=== PATIENT | male | born 1980 | race Caucasian/White ===

== ENCOUNTER 2016-04-13 14:15 | Emergency (ER) | payer BC, OTHER ==
[~2016-04-13] VITALS: Ht 175.3 cm; Wt 75.5 kg
[~2016-04-13 14:15] MED LIST: AZAT50TA30 PO; BNT20 PO; COLE1TAB5 PO; HYOS0.1255 PO; OMEP20CA9 PO; ONDA4TAB9 PO; OXYC-609 PO; PRD10 PO; PRED20TA2 PO
[2016-04-13 14:19] VITALS: TEMP 36.6; Ht 175.3 cm; Wt 75.5 kg
[2016-04-13] MEDS ORDERED: OXYCODONE HCL IR 5 MG TAB (IMMEDIATE RELEASE) PO STA (14:58)
--- NOTE | 2016-04-13 15:25 | DIAGNOSTIC IMAGING REPORT ---
TWO VIEW CHEST CLINICAL HISTORY: Left-sided chest pain. Left upper extremity numbness. FINDINGS: PA and lateral chest radiographs are compared to study dated 01/01/2016. The cardiomediastinal silhouette is unremarkable. Linear atelectasis is present the left lung base. The lungs and pleural spaces are otherwise clear. There is no pneumothorax. The bony thorax appears intact. IMPRESSION: No active disease in the chest. Electronically signed by: Brendan Knott M.D. 04/13/2016 3:24 PM Dictated Date/Time: 04/13/2016 3:24 PM
[2016-04-13 16:54] VITALS: BP 139/93; PULSE 66; O2SAT 97
--- NOTE | 2016-04-13 17:40 | EMERGENCY ROOM VISIT NOTE ---
History First contact with patient: 14:29 Chief Complaint: SHOULDER PAIN Stated Complaint: SHOULDER/CHEST PAIN History of Present Illness The patient is a 35 year old white male who presents to the Emergency Room with complaints of left anterior chest pain that radiates to the left shoulder. Symptoms started last night. They have been present throughout the day. He states he was working on his car over the last several days. He has also been moving and loading lots of boxes. He denies any specific trauma. Pain is diffuse across the pectoral muscle. It is reproducible with palpation. He denies any history of heart disease. No shortness of breath. Left chest wall hurts more with a deep breath. He also notes radiation of symptoms down the left arm to his fingertips. He states that his long, ring, little fingertips are numb. No treatment. No other complaints. No diaphoresis. Review of Systems REVIEW OF SYSTEM: HEENT: No dizziness, visual problems, hearing loss, or tinnitus. There is no difficulty swallowing and no oral lesions are present. LYMPH: No adenopathy. PULMONARY: No cough, shortness of breath, sputum production or hemoptysis. CARDIOVASCULAR: No chest pain, palpitations, shortness of breath or peripheral edema. GASTROINTESTINAL: Positive diarrhea, constipation, nausea, vomiting, and abdominal pain. GENITOURINARY: No dysuria, frequency, urgency or nocturia. NEUROLOGIC: No weakness, muscle tenderness, epilepsy or history of neurological problems. MUSCULOSKELETAL: No history of joint tenderness/swelling. No history of arthritis or arthralgias. SKIN: No rashes or lesions. PSYCHIATRIC: No history of depression or mental illness. ENDOCRINE: No history of diabetes, thyroid disorders, or abnormal hair growth. Past Medical/Surgical History Medical Problems: (1) Abdominal pain (2) Crohns disease (3) Crohns disease (4) Exacerbation of Crohn's disease (5) GERD (gastroesophageal reflux disease) (6) Hematochezia (7) Nausea, vomiting, and diarrhea (8) Right sided abdominal pain Surgical Problems: (1) History of partial colectomy (2) Status post small bowel resection Family History Diabetes mellitus FH: heart disease FHx: cancer Social History Smoking Status: Never Smoker Smokeless Tobacco Use: Yes Alcohol Use: occasionally Drug Use: marijuana Marital Status: single Housing Status: lives with family Occupation Status: unemployed Current/Historical Medications Scheduled Adalimumab (Humira Pen), 40 MG SQ Q2 WEEKS Azathioprine (Azathioprine), 100 MG PO DAILY Colestipol Hcl (Colestipol Hcl), 2 GM PO BID Dicyclomine HCl (Dicyclomine HCl), 20 MG PO TID Omeprazole (Prilosec), 20 MG PO QAM Scheduled PRN Hyoscyamine Sulfate (Levsin), 0.125 MG PO TID PRN for cramps Ondansetron (Ondansetron HCl), 4 MG PO Q6H PRN for Nausea Oxycodone HCl (Oxycodone HCl), 5 MG PO BID PRN for Pain Allergies Coded Allergies: Acetaminophen (Verified Allergy, Intermediate, HIVES, 04/13/16) NSAIDs (Verified Allergy, Unknown, contraindicated hx bleeding ulcers, 04/13) Infliximab (Verified Adverse Reaction, Severe, NAUSEA, EMESIS, FLUSHING, HIVES, HYPERTENSION, PALLOR, 04/13/16) PT RECEIVING 3RD DOSE OF REMICADE (1ST AT [facility]) AND DEVELOPED THE FOLLOWING SYMPTOMS 13 MINUTES INTO MEDICATION: NAUSE, EMESIS, FLUSHING, HIVES ON FACE, BACK, ABDOMEN, CHEST, AND BELOW RIGHT EYE; HYPERTENSION, PALLOR. DENIES ANY DIFFICULTY SWALLOWING OR BREATHING/NO SOB. MEDICATION STOPPED IMMEDIATELY WITH NSS UP AT 125 CC/HR. Physical Exam Vital Signs Date Time Temp Pulse Resp B/P Pulse Ox O2 Delivery O2 Flow Rate FiO2 04/13/16 16:54 66 18 139/93 97 04/13/16 15:46 64 18 131/71 99 Room Air 04/13/16 14:19 36.6 93 18 164/81 100 Room Air Pain Rating (0-10): 0 Physical Exam Gen.: Well-developed, well-nourished, young white male, in no acute distress. Obvious discomfort. Sitting on a bed. Alert and oriented. Skin:Warm and dry with good turgor. No rashes or lesions. No ecchymosis or erythema. The patient is not diaphoretic. No abrasions. Heart: Heart RRR. No MGR. Peripheral pulses are 2+. Lungs: Lungs are clear to auscultation. No crackles rhonchi or wheezing. Good air movement. The patient is able to take a deep breath. Abdomen: Abdomen was inspected, auscultated, and palpated. Bowel sounds present x 4. Soft, nontender to palpation. No hepato- splenomegaly. No masses noted. Musculoskeletal: No obvious asymmetry or deformity to the anterior chest wall. He has focal discomfort with palpation over the pectoral muscle. This does re-create his pain. Pain extends into the tail of the pectoral muscle. No pain with palpation of the posterior rotator cuff musculature, trapezius, deltoid, bicep, tricep. Full range of motion of the digits, wrist, and elbow. Shoulder abduction to 90. This does increase his pain. No pain with palpation of the right pectoral muscle or sternum. Resisted abduction increases his pectoral pain, as well as bench pressing-type activity. Neurologic: Gross sensation is intact across the left arm. He complains of decreased subjective sensation across the tips of the long, ring, and little fingers. He does have intact normal sensation to the proximal end of these digits. Peripheral pulses are 2+. Medical Decision & Procedures ER Provider Diagnostic Interpretation: EKG obtained today shows a normal sinus rhythm without acute ST or T-wave changes. Rate of 61. No change since April 2014 with comparison. Chest x-ray obtained today was read by radiology as unremarkable Medications Administered Medications (Trade) Dose Ordered Sig/Petar Route Start Time Stop Time Status Last Admin Dose Admin Oxycodone HCl (Roxicodone Immediate Rel Tab) 5 mg NOW STAT PO 04/13/16 14:58 04/13/16 14:59 DC 04/13/16 14:58 5 MG OxyIR 5 mg by mouth ED Course Patient was educated regarding today's findings. Conservative care measures were discussed. He was given a tablet of OxyIR 5 mg to help with pain control. He is unable to take NSAIDs due to his Crohn's and unable to take Tylenol due to previous allergic reaction. EKG and chest x-ray were obtained. They are unremarkable. Patient had improvement in his discomfort and was visualized laying comfortably on the bed playing on his phone. He was reassured that I find no evidence for pulmonary or cardiac source. He has likely strained his pectoral muscle. Need to avoid any heavy lifting. Days. 5. Use ice intermittently 3 days, then use moist heat. Follow-up PCP if symptoms persist to discuss medication management versus physical therapy. Medical Decision Possibility of coronary syndrome, pericarditis, pneumonia, rib fracture, intercostal strain, potential strain, contusion, and muscle rupture were considered Impression Primary Impression: Strain of left pectoralis muscle Departure Information Dispostion Home / Self-Care Condition GOOD Forms HOME CARE DOCUMENTATION FORM, IMPORTANT VISIT INFORMATION Patient Instructions My [facility] Additional Instructions Gentle stretching daily Ice to the chest wall intermittently 3 days, then use moist heat Avoid any heavy lifting, more than 5 pounds Follow-up as needed with your PCP
[2016-09-13] MEDS ORDERED: ADAL40KI SQ (09:10)
[2016-09-13] MEDS ORDERED: PRLSR20 PO (15:08)
[2016-09-13] MEDS ORDERED: METH500T37 PO (15:08)
[2016-09-13] MEDS ORDERED: SERT50TA PO (15:08)
[2016-09-13] MEDS ORDERED: DICY10CA12 PO (15:09)
[2016-11-07] MEDS ORDERED: CPR500 PO (15:34)
== END 2016-04-13 16:55 | disposition home or self-care (01) ==
LOC: C.EDB 14:16 → C.EDD 16:55
DX: S29.011A Strain of muscle and tendon of front wall of thorax, initial encounter (principal); X58.XXXA Exposure to other specified factors, initial encounter; K21.9 Gastro-esophageal reflux disease without esophagitis; Z79.899 Other long term (current) drug therapy; K50.90 Crohn's disease, unspecified, without complications

== ENCOUNTER 2016-08-18 14:26 | Emergency (ER) | payer OTHER ==
[~2016-08-18] VITALS: Ht 175.3 cm; Wt 66.7 kg
[~2016-08-18 14:26] MED LIST changes: -PRD10 PO; -PRED20TA2 PO
[2016-08-18 14:30] VITALS: TEMP 36.8; Ht 175.3 cm; Wt 66.7 kg
[2016-08-18] MEDS ORDERED: AMOX875T PO (15:02)
[2016-08-18] MEDS ORDERED: DICL-201 PO (15:08)
[2016-08-18] MEDS ORDERED: ONDANSETRON 4MG OD TAB PO STA (15:19)
[2016-08-18] MEDS ORDERED: KETOROLAC TROMETHAMINE 60 MG/2 ML VIAL IM STA (15:19)
[2016-08-18] MEDS ORDERED: HYDROmorphone INJ 2 MG/ML SYR/VIAL IM STA (15:19)
[2016-08-18] MEDS ORDERED: CYCLOBENZAPRINE HCL 10 MG TAB PO STA (15:19)
[2016-08-18] MEDS ORDERED: OXYC1TAB3 PO (16:06)
[2016-08-18] MEDS ORDERED: CYCL10TA6 PO (16:06)
--- NOTE | 2016-08-18 16:07 | EMERGENCY ROOM VISIT NOTE ---
ED Visit Note First contact with patient: 15:00 CHIEF COMPLAINT: Mid back pain times "a couple weeks" HISTORY OF PRESENT ILLNESS: Patient is a 35-year-old white male who presents to the emergency department for evaluation of thoracic back pain. His symptoms started a couple of weeks ago. He states that he was able to tolerate it initially, but over the last week his symptoms have progressively worsened. He describes pain in his mid back between his shoulder blades that is constant, but worse with movement. He had x-rays performed last week, which showed some mild degenerative disc changes. He has a history of chronic low back pain as well as Crohn's disease, has oxycodone for his chronic pain which she has been taking without relief of his mid back pain. He is using oxycodone 5 mg 1-2 tablets every 4-6 hours. He ran out of his oxycodone this morning. If this is prescribed by his primary care provider, Dr. Smith. He is allergic to acetaminophen, and cannot take NSAIDs due to his Crohn's disease. He tried BenGay, Biofreeze, massage and soaking in the top without relief. He presently rates his pain an 8/10. He denies any anterior chest pain or shortness of breath. Pain is not worse with coughing or deep breathing. No numbness, weakness, or tingling of extremities. He denies any unusual activity or direct trauma to the area prior to the onset of his pain. REVIEW OF SYSTEMS: Review of systems as per HPI. All other systems reviewed were negative. At least 6 systems reviewed. PMH: Electronic medical records are reviewed and summarized as above/below. See Problem List. SOCIAL HISTORY: Patient lives at home with his family. Former smoker. Employed. PHYSICAL EXAM: Vital Signs: Reviewed Nurse's notes. CONSTITUTIONAL: Patient is an uncomfortable appearing 35-year-old white male who was awake and alert and in moderate distress due to his mid back pain. There is significant discomfort with position changes. NECK: No bruits auscultated. Supple without lymphadenopathy. No thyromegaly. No meningeal signs. Full active range of motion without discomfort. CARDIOVASCULAR: Regular rate and rhythm, with normal S1 and S2, no murmur or gallop or rub is heard. No carotid bruits auscultated. No JVD. Peripheral pulses easily palpable. RESPIRATORY: Breath sounds equal and clear to auscultation without wheezes, rales, or rhonchi heard. Full and equal chest expansion without accessory muscle use or retractions. INTEGUMENTARY: No lesions or rash, normal skin turgor. LYMPH: No lymphadenopathy. SPINE: Examination of the patient's back does not demonstrate any ecchymosis, abrasions or outward signs of trauma. No erythema, increased warmth or induration. Patient has midline discomfort to palpation over the midthoracic spine. There is some reproducible paraspinous muscle tenderness, no focal spasm. There is no pain over the cervical spine. He has increased pain with range of motion including rotation and flexion. EXTREMITIES: Leg lengths are symmetrical. Negative logroll bilaterally. Negative bilateral straight leg raise testing. Upper and lower extremity DTRs are equal and symmetrical bilaterally. Distal pulses are easily palpable. Sensation light touch is intact over the lower extremities bilaterally. EMERGENCY DEPARTMENT COURSE: The patient was seen and evaluated as above. He presents to the emergency department for evaluation of mid back pain. He had radiographs as an outpatient, which were negative. The pain appears more muscular/ligamentous injury to her. There is no pleuritic component, no chest pain, pulmonary or cardiac etiology was felt to be unlikely. He does not have any neurologic neurologic deficits to suspect acute cord compression or cauda equina syndrome. I do not suspect epidural abscess or osteomyelitis. The patient was medicated with IM Toradol and Dilaudid with oral Zofran. He was given a small prescription for oxycodone and a prescription for Flexeril until he can get a refill from his primary care provider. He was encouraged to recheck with Dr. Smith for further care and evaluation of his symptoms. He was discharged to home with his driving. He rated his pain 2/10 at discharge. Patient was reviewed in the [facility] Prescription Drug Monitoring Program, which showed his regular oxycodone prescriptions from his PCP. No other worrisome red flags are noted. Medication reconciliation: I attest that I have personally reviewed the patient' s current medication list. Blood pressure screening: Patient was found to have a slightly elevated blood pressure due to circumstances. I do not believe that the patient requires hypertension monitoring. Problem List Medical Problems: (1) Abdominal pain Status: Resolved (2) Crohns disease Status: Chronic (3) Crohns disease Status: Chronic (4) Exacerbation of Crohn's disease Status: Resolved (5) Exacerbation of Crohn's disease Status: Resolved (6) GERD (gastroesophageal reflux disease) Status: Chronic (7) Hematochezia Status: Resolved (8) Lumbago Status: Chronic (9) Nausea, vomiting, and diarrhea Status: Resolved (10) Right sided abdominal pain Status: Resolved (11) Strain of left pectoralis muscle Status: Resolved (12) Strain of left pectoralis muscle Status: Resolved Surgical Problems: (1) History of partial colectomy Permanent Comment: LAPAROSCOPIC PARTIAL COLECTOMY REMOVAL OF TERMINAL ILEUM performed by Shweta Causey MD at [facility] Status: Resolved (2) Status post small bowel resection Status: Resolved Current/Historical Medications Scheduled Adalimumab (Humira Pen), 40 MG SQ Q2 WEEKS Amoxicillin & Pot Clavulanate (Augmentin 875-125 mg), 1 TAB PO BID Diclofenac (Voltaren), 75 MG PO DAILY Omeprazole (Prilosec), 20 MG PO DAILY Sertraline (Zoloft), 50 MG PO DAILY Scheduled PRN Cyclobenzaprine Hcl (Flexeril), 10 MG PO TID PRN for Muscle Spasms Dicyclomine Hcl (Dicyclomine Hcl), 1 CAP PO TID PRN for Pain Methocarbamol (Robaxin), 500 MG PO TID PRN for Muscle Spasms Oxycodone HCl (Oxycodone HCl), 5 MG PO Q8 PRN for Pain Oxycodone Immediate Rel Tab (Roxicodone Ir), 1-2 TAB PO Q4H PRN for Severe Pain Allergies Coded Allergies: Acetaminophen (Verified Allergy, Intermediate, HIVES, 04/13/16) NSAIDs (Verified Allergy, Unknown, contraindicated hx bleeding ulcers, 04/13) Infliximab (Verified Adverse Reaction, Severe, NAUSEA, EMESIS, FLUSHING, HIVES, HYPERTENSION, PALLOR, 04/13/16) PT RECEIVING 3RD DOSE OF REMICADE (1ST AT [facility]) AND DEVELOPED THE FOLLOWING SYMPTOMS 13 MINUTES INTO MEDICATION: NAUSE, EMESIS, FLUSHING, HIVES ON FACE, BACK, ABDOMEN, CHEST, AND BELOW RIGHT EYE; HYPERTENSION, PALLOR. DENIES ANY DIFFICULTY SWALLOWING OR BREATHING/NO SOB. MEDICATION STOPPED IMMEDIATELY WITH NSS UP AT 125 CC/HR. Vital Signs Date Time Temp Pulse Resp B/P (MAP) Pulse Ox O2 Delivery O2 Flow Rate FiO2 08/18/16 16:30 62 18 128/81 98 Room Air 08/18/16 14:30 36.8 79 17 147/95 97 Room Air Medications Administered Medications (Trade) Dose Ordered Sig/Petar Route Start Time Stop Time Status Last Admin Dose Admin Hydromorphone HCl (Dilaudid Inj) 2 mg NOW STAT IM 08/18/16 15:19 08/18/16 15:21 DC 08/18/16 15:41 2 MG Ketorolac Tromethamine (Toradol Inj) 60 mg NOW STAT IM 08/18/16 15:19 08/18/16 15:21 DC 08/18/16 15:42 60 MG Ondansetron HCl (Zofran Odt) 4 mg NOW STAT PO 08/18/16 15:19 08/18/16 15:21 DC 08/18/16 15:40 4 MG Cyclobenzaprine HCl (Flexeril Tab) 10 mg NOW STAT PO 08/18/16 15:19 08/18/16 15:21 DC 08/18/16 15:41 10 MG Departure Information Impression Primary Impression: Thoracic back pain Prescriptions Cyclobenzaprine Hcl (FLEXERIL) 10 Mg Tab 10 MG PO TID Y for Muscle Spasms, #30 TAB Prov: Lula David PA 08/18/16 Oxycodone Immediate Rel Tab (ROXICODONE IR) 5 Mg Tab 1-2 TAB PO Q4H Y for Severe Pain, #10 TAB For Initial Treatment Prov: Lula David PA 08/18/16 Referrals Kevin Smith M.D. (PCP) Patient Instructions My [facility] Additional Instructions DO NOT drive, drink alcohol, operate machinery, or perform dangerous activities today. You were given medications in the ER that can affect your ability to safely function or operate a vehicle. Oxycodone (OxyIR) 5mg: Take 1-2 pills every four hours for breakthrough pain. Avoid alcohol, operating machinery or dangerous equipment, working on ladders or roofs, DRIVING, or situations where being under the influence may be dangerous. It is recommended to use an [id number] stool softener such as Colace, 100mg twice daily while taking this medication to avoid constipation. Cyclobenzaprine (Flexeril) 10 mg: Take 1 pills 3 times daily as needed for muscle spasms.. Avoid alcohol, operating machinery or dangerous equipment, working on ladders or roofs, DRIVING, or situations where being under the influence may be dangerous. Rest and avoid heavy lifting until your symptoms resolve and then gradually return to full activity. A good rule of thumb is if it hurts your back to perform a certain activity, then it should be avoided until you are healthy again. A heating pad, warm compresses, or a hot shower may help with tight muscles and can be done several times a day as needed. Continue current medications. Return to the ER immediately for any numbness, tingling, severe pain, loss of control of your bowels or bladder, inability to walk, or as needed. Follow up with your primary care physician on Friday for a recheck of your current condition. Problem Qualifiers Primary Impression: Thoracic back pain Chronicity: unspecified Back pain laterality: midline Qualified Codes: M54.6 - Pain in thoracic spine
[2016-08-18 16:30] VITALS: BP 128/81; PULSE 62; O2SAT 98
[2016-09-13] MEDS ORDERED: ADAL40KI SQ (09:10)
[2016-09-13] MEDS ORDERED: METH500T37 PO (15:08)
[2016-09-13] MEDS ORDERED: SERT50TA PO (15:08)
[2016-09-13] MEDS ORDERED: PRLSR20 PO (15:08)
[2016-09-13] MEDS ORDERED: DICY10CA12 PO (15:09)
[2016-11-07] MEDS ORDERED: CPR500 PO (15:34)
== END 2016-08-18 16:34 | disposition home or self-care (01) ==
LOC: C.EDB 14:27 → C.EDD 16:34
DX: M54.6 Pain in thoracic spine (principal); Z87.891 Personal history of nicotine dependence; K50.90 Crohn's disease, unspecified, without complications; K21.9 Gastro-esophageal reflux disease without esophagitis

== ENCOUNTER 2016-09-13 16:38 | Emergency (ER) | payer OTHER ==
[~2016-09-13] VITALS: Ht 170.2 cm; Wt 64.8 kg
[~2016-09-13 16:38] MED LIST changes: +ADAL40KI SQ; +AMOX875T PO; -AZAT50TA30 PO; -BNT20 PO; -COLE1TAB5 PO; +DICL-201 PO; +DICY10CA12 PO; -HYOS0.1255 PO; +METH500T37 PO; -OMEP20CA9 PO; -ONDA4TAB9 PO; +OXYC1TAB3 PO; +PRLSR20 PO; +SERT50TA PO
[2016-09-13 16:44] VITALS: BP 158/106; TEMP 36.8; Ht 170.2 cm; Wt 64.8 kg
[2016-09-13] MEDS ORDERED: OXYC1TAB3 PO (17:30)
--- NOTE | 2016-09-13 18:15 | DIAGNOSTIC IMAGING REPORT ---
LEFT KNEE 3 VIEWS CLINICAL HISTORY: Left knee pain status post trauma COMPARISON: None. DISCUSSION: No fractures or dislocations are visualized. No joint effusion is visualized. IMPRESSION: No fractures identified. Electronically signed by: Adam Yu M.D. 09/13/2016 6:14 PM Dictated Date/Time: 09/13/2016 6:14 PM
--- NOTE | 2016-09-13 18:21 | EMERGENCY ROOM VISIT NOTE ---
ED Visit Note First contact with patient: 17:07 CHIEF COMPLAINT: Left knee injury this morning HISTORY OF PRESENT ILLNESS: Patient is a 36-year-old white male who presents emergency department for evaluation of left knee pain. He injured the ED this morning when he was loading his small boat into the back of his pickup truck. He states that the tailgate was not latched, and when the tailgate opened, the boat fell, striking him on the top of the left knee. He had 2 oxycodone tablets left over from the prescription from his primary care provider which he took. He applied ice to the knee. He reports that he has had problems with the knee and has seen his PCP, Dr. Smith. He is scheduled for an MRI on . He is on oxycodone chronically for back pain. This had been prescribed by Dr. Smith but the patient reports that it is no longer efficacious and Dr. Smith is sending him to pain management. He is scheduled to see pain management on the . He presently rates his knee pain a 10/20. REVIEW OF SYSTEMS: Review of systems as per HPI. All other systems reviewed were negative. At least 6 systems reviewed. PMH: Electronic medical records are reviewed and summarized as above/below. See Problem List. SOCIAL HISTORY: Patient lives at home with his family. Smoker. PHYSICAL EXAM: Vital Signs: Reviewed Nurse's notes. MENTAL STATUS: Alert, oriented, and cooperative. KNEE: Examination of the left knee does not demonstrate any significant soft tissue swelling. No knee joint effusion noted. There is some bruising superomedially, skin is otherwise intact. The knee is exquisitely tender to palpation, out of proportion to physical exam findings. He can contract the quad and perform a slight straight leg raise. He can be flexed to roughly 90 before he has pain. No gross ligament instability is detected. Exam is difficult due to patient cooperation. EMERGENCY DEPARTMENT COURSE: The patient was seen and evaluated as above. His old records were reviewed. He was just seen here by me about a month ago for thoracic back pain. X-rays of the left knee were obtained and negative for acute fracture or bony abnormality. He was wrapped with an Paulino wrap and issued crutches. Differential diagnoses entertained included patellar fracture, patellar dislocation/subluxation, quadriceps tendon injury, knee fracture, meniscal tear, ligamentous injury, among others. The patient has had some chronic problems with the left knee for several years and is scheduled for an MRI in a couple of weeks. He is prescribed narcotics chronically from his PCP, patient was reviewed in the [facility] Prescription Drug Monitoring Program, which show that he gets a 20 day supply of oxycodone from his PCP monthly. His last prescriptions for a 20 day supply was filled on . Patient reportedly used up the last of his medications today, which is only day 18. Given that he receives regular prescriptions from his PCP, I did not feel comfortable prescribing him additional narcotics, particularly given lack of any substantial findings on the x-ray. Unfortunately patient has an allergy to acetaminophen and cannot take NSAIDs due to stomach ulcers. He was given an oxycodone home pack. He was advised to follow-up with his primary care provider for recheck, and for the MRI as scheduled. Medication reconciliation: I attest that I have personally reviewed the patient' s current medication list. Blood pressure screening: Patient was found to have a slightly elevated blood pressure due to circumstances. I do not believe that the patient requires hypertension monitoring. Patient was reviewed in the [facility] Prescription Drug Monitoring Program. He receives regular 20 day supply of oxycodone from Dr. Smith, his last prescription was from 08/26. LEFT KNEE 3 VIEWS CLINICAL HISTORY: Left knee pain status post trauma COMPARISON: None. DISCUSSION: No fractures or dislocations are visualized. No joint effusion is visualized. IMPRESSION: No fractures identified. Problem List Medical Problems: (1) Abdominal pain Status: Resolved (2) Crohns disease Status: Chronic (3) Crohns disease Status: Chronic (4) Exacerbation of Crohn's disease Status: Resolved (5) Exacerbation of Crohn's disease Status: Resolved (6) GERD (gastroesophageal reflux disease) Status: Chronic (7) Hematochezia Status: Resolved (8) Lumbago Status: Chronic (9) Nausea, vomiting, and diarrhea Status: Resolved (10) Right sided abdominal pain Status: Resolved (11) Strain of left pectoralis muscle Status: Resolved (12) Strain of left pectoralis muscle Status: Resolved (13) Thoracic back pain Status: Resolved Surgical Problems: (1) History of partial colectomy Permanent Comment: LAPAROSCOPIC PARTIAL COLECTOMY REMOVAL OF TERMINAL ILEUM performed by Shweta Causey MD at OR [facility] Status: Resolved (2) Status post small bowel resection Status: Resolved Current/Historical Medications Scheduled Adalimumab (Humira Pen), 40 MG SQ Q2 WEEKS Omeprazole (Prilosec), 20 MG PO DAILY Sertraline (Zoloft), 50 MG PO DAILY Scheduled PRN Dicyclomine Hcl (Dicyclomine Hcl), 1 CAP PO TID PRN for Pain Methocarbamol (Robaxin), 500 MG PO TID PRN for Muscle Spasms Oxycodone Ir (Roxicodone Ir), 1-2 TAB PO Q4H PRN for Severe Pain Allergies Coded Allergies: Acetaminophen (Verified Allergy, Intermediate, HIVES, 04/13/16) NSAIDs (Verified Allergy, Unknown, contraindicated hx bleeding ulcers, 04/13) Infliximab (Verified Adverse Reaction, Severe, NAUSEA, EMESIS, FLUSHING, HIVES, HYPERTENSION, PALLOR, 04/13/16) PT RECEIVING 3RD DOSE OF REMICADE (1ST AT [facility]) AND DEVELOPED THE FOLLOWING SYMPTOMS 13 MINUTES INTO MEDICATION: NAUSE, EMESIS, FLUSHING, HIVES ON FACE, BACK, ABDOMEN, CHEST, AND BELOW RIGHT EYE; HYPERTENSION, PALLOR. DENIES ANY DIFFICULTY SWALLOWING OR BREATHING/NO SOB. MEDICATION STOPPED IMMEDIATELY WITH NSS UP AT 125 CC/HR. Vital Signs Date Time Temp Pulse Resp B/P (MAP) Pulse Ox O2 Delivery O2 Flow Rate FiO2 09/13/16 18:51 80 18 99 Room Air 09/13/16 16:44 36.8 76 18 158/106 99 Room Air Medications Administered Medications (Trade) Dose Ordered Sig/Petar Route Start Time Stop Time Status Last Admin Dose Admin Oxycodone HCl (Roxicodone Immediate Rel 5MG Home Pack) 1 homepack UD ONCE PO 09/13/16 18:30 09/13/16 18:31 DC 09/13/16 18:44 1 HOMEPACK Departure Information Impression Primary Impression: Contusion of left knee Referrals Kevin Smith M.D. (PCP) Patient Instructions My [facility] Additional Instructions Oxycodone (OxyIR) 5mg: Take 1-2 pills every four hours for breakthrough pain. Avoid alcohol, operating machinery or dangerous equipment, working on ladders or roofs, DRIVING, or situations where being under the influence may be dangerous. It is recommended to use an [id number] stool softener such as Colace, 100mg twice daily while taking this medication to avoid constipation. Ice compresses for 20 minutes at a time four times daily for 2-3 days. Use the crutches as instructed. Rest and elevate your injury. Continue current medications. Return to the ER immediately for any numbness, tingling, severe pain, extreme swelling in the extremity or as needed. Follow-up with your primary care physician for further care and management, and for your MRI as scheduled. Problem Qualifiers Primary Impression: Contusion of left knee Encounter type: initial encounter Qualified Codes: S80.02XA - Contusion of left knee, initial encounter
[2016-09-13] MEDS ORDERED: OXYCODONE IR HOME PACK PO ONE (18:30)
[2016-09-13 18:51] VITALS: PULSE 80; O2SAT 99
[2016-11-07] MEDS ORDERED: CPR500 PO (15:34)
== END 2016-09-13 18:51 | disposition home or self-care (01) ==
LOC: C.EDB 16:39 → C.EDD 18:51
DX: S80.02XA Contusion of left knee, initial encounter (principal); W22.8XXA Striking against or struck by other objects, initial encounter; G89.29 Other chronic pain; K21.9 Gastro-esophageal reflux disease without esophagitis; K50.90 Crohn's disease, unspecified, without complications; F17.200 Nicotine dependence, unspecified, uncomplicated; Z87.828 Personal history of other (healed) physical injury and trauma; Z90.49 Acquired absence of other specified parts of digestive tract; Z79.899 Other long term (current) drug therapy; Z88.6 Allergy status to analgesic agent; Z88.8 Allergy status to other drugs, medicaments and biological substances

== ENCOUNTER → 2016-10-31 | Outpatient (CLI) | payer OTHER ==
[~2016-10-31] MED LIST changes: -AMOX875T PO; +CPR500 PO; +DICY20TA35 PO; +OXYC-164 PO; -OXYC-609 PO; +SERT25TA PO
--- NOTE | 2016-10-31 15:32 | DIAGNOSTIC IMAGING REPORT ---
WHOLE-BODY BONE SCAN WITH SPECT IMAGING OF THE LUMBAR SPINE AND PELVIS CLINICAL HISTORY: Lumbar spine and SI joint chronic pain. Sacroiliitis. COMPARISON STUDY: CT scan the abdomen pelvis dated 01/19/2016 FINDINGS: The patient was injected with 24.4 mCi of technetium 99m MDP. Three-hour delayed whole body images were acquired. These are supplemented with SPECT imaging of the lumbar spine and pelvis. Skeletal uptake is felt to be symmetric and normal on both plain arm and SPECT imaging. IMPRESSION: Normal study Electronically signed by: Adam Yu M.D. 10/31/2016 3:31 PM Dictated Date/Time: 10/31/2016 3:28 PM
== END | disposition home or self-care (01) ==
LOC: C.NUCL 11:04
PROVIDERS: ATTEND Anesthesiology Pain Medicine
DX: G89.4 Chronic pain syndrome (principal); M46.1 Sacroiliitis, not elsewhere classified; M47.26 Other spondylosis with radiculopathy, lumbar region

== ENCOUNTER 2016-11-05 13:31 | Inpatient (IN) | payer OTHER ==
[~2016-11-05] VITALS: Ht 175.3 cm; Wt 66.6 kg
[~2016-11-05 13:31] MED LIST changes: -CPR500 PO; -DICL-201 PO; -DICY20TA35 PO; -OXYC-164 PO; -SERT25TA PO
[2016-11-05] MEDS ORDERED: SERT25TA PO (13:55)
[2016-11-05] MEDS ORDERED: OXYC-164 PO (13:55)
[2016-11-05] MEDS ORDERED: DICL-201 PO (13:55)
[2016-11-05] MEDS ORDERED: DICY20TA35 PO (13:55)
[2016-11-05] MEDS ORDERED: ONDANSETRON INJ 2 MG/ML 2 ML VIAL IV STA (14:17)
[2016-11-05] MEDS ORDERED: MoRPHine SULFATE 4 MG/ML 1 ML CARP\\VIAL IV STA (14:18)
[2016-11-05] MEDS ORDERED: SODIUM CHLORIDE 0.9% 1000ML 1,000 ML IV ONE (14:30)
[2016-11-05] MEDS ORDERED: SODIUM CHLORIDE 0.9% 1000ML 1,000 ML IV SCH ×2 (14:30)
--- NOTE | 2016-11-05 14:32 | EMERGENCY ROOM VISIT NOTE ---
History First contact with patient: 13:58 Chief Complaint: ABDOMINAL PAIN Stated Complaint: CROHN'S FLARE-UP History of Present Illness The patient is a 36 year old male with a past medical history of Crohn's who presents to the Emergency Room with complaints of a 1 week history of diarrhea. The patient began to have loose stool 1 week ago that was progressively worsening so the patient changed his diet to a liquid diet. His bowel movement then became more solid but began to have blood and then returned to watery diarrhea over the weekend. Yesterday the patient began to have some crampy pain before bed but was able to fall asleep. He woke up this morning with repeated cramping that intermittently lasts 2 minutes and is a 7-9/10. The patient states that he has experienced worse flairs before but the cramping is unbearable. He was unable to walk or stand at work due to the excruciating nature of his cramping. He is compliant with his home medications and took his Humira last week. He denies any vomiting but has had less of an appetite due to nausea associated with the cramping. Patient denies any fevers or chills but has been very sweaty today with the cramping. Review of Systems See HPI for pertinent positives and negatives. A total of ten systems were reviewed and were otherwise negative. Past Medical/Surgical History Medical Problems: (1) Abdominal pain (2) Crohns disease (3) Crohns disease (4) Exacerbation of Crohn's disease (5) Exacerbation of Crohn's disease (6) GERD (gastroesophageal reflux disease) (7) Hematochezia (8) Lumbago (9) Nausea, vomiting, and diarrhea (10) Right sided abdominal pain (11) Strain of left pectoralis muscle (12) Strain of left pectoralis muscle (13) Thoracic back pain Surgical Problems: (1) History of partial colectomy (2) Status post small bowel resection Family History Diabetes mellitus FH: heart disease FHx: cancer Social History Smoking Status: Light Tobacco Smoker Alcohol Use: occasionally Drug Use: marijuana Marital Status: single Housing Status: lives with family Occupation Status: unemployed Current/Historical Medications Scheduled Adalimumab (Humira Pen), 40 MG SQ Q2 WEEKS Diclofenac (Voltaren), 75 MG PO BID Dicyclomine Hcl (Bentyl), 20 MG PO DAILY Omeprazole (Prilosec), 20 MG PO BID Sertraline (Zoloft), 25 MG PO DAILY Scheduled PRN Methocarbamol (Robaxin), 500 MG PO TID PRN for Muscle Spasms Oxycodone Hcl (Oxycodone Hcl), 1 TAB PO QID PRN for Pain Physical Exam Vital Signs Date Time Temp Pulse Resp B/P (MAP) Pulse Ox O2 Delivery O2 Flow Rate FiO2 11/05/16 14:40 66 17 154/85 98 Room Air 11/05/16 13:40 36.9 69 17 159/101 98 Room Air Physical Exam GENERAL: Awake, alert, in mild distress HENT: Normocephalic, atraumatic. Oropharynx unremarkable. EYES: Normal conjunctiva. Sclera non-icteric. NECK: Supple. No nuchal rigidity. RESPIRATORY: Clear to auscultation. CARDIAC: Regular rate, normal rhythm. Extremities warm and well perfused. Pulses equal. ABDOMEN: Soft, non-distended. Tenderness to palpation of the abdomen worse at the RLQ. No rebound or guarding. No masses. RECTAL: Deferred. MUSCULOSKELETAL: Chest examination reveals no tenderness. The back is symmetrical on inspection without obvious abnormality. LOWER EXTREMITIES: Calves are equal size bilaterally and non-tender. No edema. No discoloration. NEURO: Normal sensorium. No sensory or motor deficits noted. SKIN: No rash or jaundice noted. Medical Decision & Procedures Laboratory Results 11/05/16 13:56 Red Blood Count 5.18, Mean Corpuscular Volume 84.9, Mean Corpuscular Hemoglobin 27.2, Mean Corpuscular Hemoglobin Concent 32.0, Neutrophils (%) (Auto) 60.8, Lymphocytes (%) (Auto) 30.0, Monocytes (%) (Auto) 6.6, Eosinophils (%) (Auto) 1.8, Basophils (%) (Auto) 0.4, Neutrophils # (Auto) 6.40, Lymphocytes # (Auto) 3.16, Monocytes # (Auto) 0.70, Eosinophils # (Auto) 0.19, Basophils # (Auto) 0.04 11/05/16 13:56 Test 11/05/16 13:56 White Blood Count 10.53 K/uL (4.8-10.8) Red Blood Count 5.18 M/uL (4.7-6.1) Hemoglobin 14.1 g/dL (14.0-18.0) Hematocrit 44.0 % (42-52) Mean Corpuscular Volume 84.9 fL (80-100) Mean Corpuscular Hemoglobin 27.2 pg (25-34) Mean Corpuscular Hemoglobin Concent 32.0 g/dl (32-36) Platelet Count 239 K/uL (130-400) Neutrophils (%) (Auto) 60.8 % Lymphocytes (%) (Auto) 30.0 % Monocytes (%) (Auto) 6.6 % Eosinophils (%) (Auto) 1.8 % Basophils (%) (Auto) 0.4 % Neutrophils # (Auto) 6.40 K/uL (1.4-6.5) Lymphocytes # (Auto) 3.16 K/uL (1.2-3.4) Monocytes # (Auto) 0.70 K/uL (0.11-0.59) Eosinophils # (Auto) 0.19 K/uL (0-0.5) Basophils # (Auto) 0.04 K/uL (0-0.2) RDW Standard Deviation 50.9 fL (36.4-46.3) RDW Coefficient of Variation 16.4 % (11.5-14.5) Immature Granulocyte % (Auto) 0.4 % Immature Granulocyte # (Auto) 0.04 K/uL (0.00-0.02) Anion Gap 7.0 mmol/L (3-11) Est Creatinine Clear Calc Drug Dose 88.3 ml/min Estimated GFR () 100.3 Estimated GFR (Non- 86.5 BUN/Creatinine Ratio 13.2 (10-20) Calcium Level 9.1 mg/dl (8.5-10.1) Total Bilirubin 0.4 mg/dl (0.2-1) Direct Bilirubin < 0.1 mg/dl (0-0.2) Aspartate Amino Transf (AST/SGOT) 24 U/L (15-37) Alanine Aminotransferase (ALT/SGPT) 33 U/L (12-78) Alkaline Phosphatase 88 U/L (45-117) Total Protein 8.4 gm/dl (6.4-8.2) Albumin 4.2 gm/dl (3.4-5.0) Lipase 188 U/L (73-393) Medications Administered Medications (Trade) Dose Ordered Sig/Petar Route Start Time Stop Time Status Last Admin Dose Admin Ondansetron HCl (Zofran Inj) 4 mg NOW STAT IV 11/05/16 14:17 11/05/16 14:18 DC 11/05/16 14:39 4 MG Morphine Sulfate (MoRPHine SULFATE INJ) 4 mg NOW STAT IV 11/05/16 14:18 11/05/16 14:20 DC 11/05/16 14:40 4 MG Sodium Chloride 1,000 ml @ 999 mls/hr Q1H1M ONCE IV 11/05/16 14:30 11/05/16 15:51 DC 11/05/16 14:40 999 MLS/HR Sodium Chloride 1,000 ml @ 125 mls/hr Q8H IV 11/05/16 14:30 12/05/16 14:29 11/05/16 14:40 125 MLS/HR Hydromorphone HCl (Dilaudid Inj) 0.5 mg NOW STAT IV 11/05/16 15:12 11/05/16 15:51 DC 11/05/16 15:32 0.5 MG ED Course - Patient evaluated in room B5 with complaints of campy abdominal pain, diarrhea , and blood in stool - Abdominal tenderness to palpation on exam 1420: Orders Place - Labs: CBC, BMP, LFT, Lipase - Meds: Morphine IV 4mg, Zofran IV 4mg, NSS 1L Bolus + 125ml/hr maintenance - Imaging: None at this time 1520: Patient re-evaluated - Continued abdominal pain, now an 09/19 - Dilaudid 0.5mg ordered Medical Decision Patient is a 36 year old male with a history of Crohns disease that presents with a 1 week history of diarrhea Etiologies such as Crohn's flare, colonic abscess, appendicitis, diverticulitis , obstruction, inflammatory bowel disease, renal colic, PUD, biliary pathology , pancreatitis, mesenteric ischemia, infections, genitourinary, UTI, perforated viscus, as well as others were entertained. - Patient continued to have abdominal pain despite 4mg Morphine IV and 0.5mg Dilaudid IV - Discussed patient with [facility] --> Recommended CT abd/pelvis, Stool Culture, Clostridium Difficile toxin testing - Based on lack of improvement with pain medication will admit patient, discussed with [facility] hospitalist who is agreeable Impression Primary Impression: Acute gastroenteritis Additional Impression: Crohn's disease Departure Information Dispostion Admitted as an inpatient Condition FAIR Referrals Kevin Smith M.D. (PCP) Patient Instructions My [facility] Resident Tracking Resident Involvement: Resident Care Provided Care Provided: Adult ED Problem Qualifiers Additional Impression: Crohn's disease Gastrointestinal tract location: unspecified location Digestive disease complication type: unspecified complication Qualified Codes: K50.919 - Crohn' s disease, unspecified, with unspecified complications
[2016-11-05] MEDS: SODIUM CHLORIDE 0.9% 1000ML 1,000 ML IV SCH ×3 (14:40→19:15)
[2016-11-05 15:03] LABS: BASO % 0.4 %; BASO ABS # 0.04 K/uL (0-0.2); COMPLETE YES; EOS % 1.8 %; IG% 0.4 %; LYMPH ABS # 3.16 K/uL (1.2-3.4); MEAN CELL VOLUME 84.9 fL (80-100); MEAN CORPUSCULAR HEMOGLOBIN 27.2 pg (25-34); MONO % 6.6 %; NEUT % 60.8 %; PLATELET COUNT 239 K/uL (130-400); RED BLOOD COUNT 5.18 M/uL (4.7-6.1); WHITE BLOOD COUNT 10.53 K/uL (4.8-10.8)
[2016-11-05] MEDS ORDERED: HYDROmorphone INJ 0.5 MG/0.5 ML SYR IV STA ×2 (15:12→17:23)
[2016-11-05 15:17] LABS: ALT/SGPT 33 U/L (12-78); AST/SGOT 24 U/L (15-37); BLOOD UREA NITROGEN 15 mg/dl (7-18); BUN/CREATININE RATIO 13.2 (10-20); CALCIUM 9.1 mg/dl (8.5-10.1); CARBON DIOXIDE 26 mmol/L (21-32); CHLORIDE 109 mmol/L (98-107); GLUCOSE 85 mg/dl (70-99); POTASSIUM 4.3 mmol/L (3.5-5.1); SODIUM 142 mmol/L (136-145)
[2016-11-05 15:20] LABS: ALKALINE PHOSPHATASE 88 U/L (45-117)
[2016-11-05 15:57] VITALS: O2SAT 97
[2016-11-05 16:31] VITALS: Ht 175.3 cm; Wt 66.6 kg
[2016-11-05] MEDS ORDERED: METHOCARBAMOL 500 MG TAB PO PRN (17:15)
[2016-11-05] MEDS ORDERED: ONDANSETRON INJ 2 MG/ML 2 ML VIAL IV PRN (17:15)
[2016-11-05 17:32] VITALS: BP 174/105; PULSE 54; TEMP 36.5; O2SAT 97
--- NOTE | 2016-11-05 18:11 | History and Physical ---
History & Physical Date & Time of Service: Nov 05, 2016 at 17:09 Chief Complaint: Crohn's Flare-Up Primary Care Physician: Kevin Smith M.D. History of Present Illness Source: patient, clinic records, hospital records This is a 36 y/o male with PMH of Crohn's disease s/p ileocecectomy on Humira, chronic pain on narcotics, who presents to the ED for bloody diarrhea and abdominal cramping. Pt follows with Dr. Metzger for GI. Diarrhea started 8 days ago with blood mixed in the stool. He reports associated increased abdominal cramping for past 1 week. After a few days stool became formed with blood. Was feeling better over the weekend. Took Humira on Friday. Then last night cramps became more severe, rated 6-9/10. Today at work he developed cold sweats and 3-4 episodes of diarrhea with blood on the toilet paper, nausea with dry heaves. Nausea resolved with Zofran. He currently rates pain 5-7/10 after being treated with morphine 4 mg IV and Dilaudid 0.5 mg IV. He reports decreased PO intake over course of this illness. He reports weight loss of 15 lb over past 6 weeks. Denies fever, chest pain, SOB, cough, dysuria, frequency. Pt denies recent antibiotics. He is not currently taking steroids. He was last hospitalized in August 2016 for Crohns flare treated with steroids. Past Medical/Surgical History Medical Problems: Chronic pain Status: Chronic Crohn disease Status: Chronic GERD (gastroesophageal reflux disease) Status: Chronic Sacroiliitis Status: Chronic Surgical Problems: History of partial colectomy Permanent Comment: LAPAROSCOPIC PARTIAL COLECTOMY REMOVAL OF TERMINAL ILEUM performed by Shweta Causey MD at [facility] Status: Resolved Family History Diabetes mellitus FH: heart disease FHx: cancer Social History Smoking Status: Current Some Day Smoker (some day smoker, up to 1/2 pack in a day) Alcohol Use: occasionally Drug Use: marijuana Marital Status: single Occupational Status: employed [employer]-D[employer] Resistant Organ[employer] History of MDRO: No Allergies Coded Allergies: Acetaminophen (Verified Allergy, Intermediate, HIVES, 11/07/16) NSAIDs (Verified Allergy, Unknown, contraindicated hx bleeding ulcers, ) Infliximab (Verified Adverse Reaction, Severe, NAUSEA, EMESIS, FLUSHING, HIVES, HYPERTENSION, PALLOR, 11/07/16) PT RECEIVING 3RD DOSE OF REMICADE (1ST AT [facility]) AND DEVELOPED THE FOLLOWING SYMPTOMS 13 MINUTES INTO MEDICATION: NAUSE, EMESIS, FLUSHING, HIVES ON FACE, BACK, ABDOMEN, CHEST, AND BELOW RIGHT EYE; HYPERTENSION, PALLOR. DENIES ANY DIFFICULTY SWALLOWING OR BREATHING/NO SOB. MEDICATION STOPPED IMMEDIATELY WITH NSS UP AT 125 CC/HR. Home Medications Scheduled Adalimumab (Humira Pen), 40 MG SQ Q2 WEEKS Ciprofloxacin (Ciprofloxacin HCl), 500 MG PO BID Diclofenac (Voltaren), 75 MG PO BID Omeprazole (Prilosec), 20 MG PO BID Sertraline (Zoloft), 25 MG PO DAILY Scheduled PRN Dicyclomine Hcl (Bentyl), 20 MG PO DAILY PRN for abdominal cramping Methocarbamol (Robaxin), 500 MG PO TID PRN for Muscle Spasms Oxycodone Hcl (Oxycodone Hcl), 1 TAB PO Q4H PRN for Pain Review of Systems Constitutional- no fever; no weight loss Eyes- no acute visual changes ENT- no sinus drainage; no pharyngitis Pulmonary- no cough, no wheezing, no shortness of breath Cardiac- no chest pain, no palpitations, no orthopnea, no dependent edema GI- (+) as noted above - no dysuria, no hematuria Musculoskeletal- no arthralgias, no myalgias Derm- no rashes, no new skin lesions, no changing skin lesions Hematologic- no unusual bruising, no unusual bleeding Lymphatics- no adenopathy Endocrine- no polyuria or polydipsia; no heat or cold intolerance Neuro- no headaches, no focal neurologic symptoms Psych- no anxiety, no depression Physical Exam Vital Signs Date Time Temp Pulse Resp B/P (MAP) Pulse Ox O2 Delivery O2 Flow Rate FiO2 11/05/16 16:31 Room Air 11/05/16 15:57 59 20 140/78 97 Room Air 11/05/16 14:40 66 17 154/85 98 Room Air 11/05/16 13:40 36.9 69 17 159/101 98 Room Air General Appearance: WD/WN, no apparent distress Head: normocephalic, atraumatic Eyes: normal inspection, sclerae normal ENT: hearing grossly normal, pharynx normal Neck: supple, trachea midline Respiratory/Chest: lungs clear, normal breath sounds, no respiratory distress, no accessory muscle use Cardiovascular: regular rate, rhythm, no murmur Abdomen/GI: normal bowel sounds, soft, + pertinent finding (diffuse tenderness to palpation especially in RLQ) Extremities/Musculoskelatal: no calf tenderness, no pedal edema Neurologic/Psych: alert, normal mood/affect, oriented x 3 Skin: normal color, warm/dry Diagnostics Laboratory Results Results Past 24 Hours Test 11/05/16 13:56 Range/Units White Blood Count 10.53 4.8-10.8 K/uL Red Blood Count 5.18 4.7-6.1 M/uL Hemoglobin 14.1 14.0-18.0 g/dL Hematocrit 44.0 42-52 % Mean Corpuscular Volume 84.9 80-100 fL Mean Corpuscular Hemoglobin 27.2 25-34 pg Mean Corpuscular Hemoglobin Concent 32.0 32-36 g/dl Platelet Count 239 130-400 K/uL Neutrophils (%) (Auto) 60.8 % Lymphocytes (%) (Auto) 30.0 % Monocytes (%) (Auto) 6.6 % Eosinophils (%) (Auto) 1.8 % Basophils (%) (Auto) 0.4 % Neutrophils # (Auto) 6.40 1.4-6.5 K/uL Lymphocytes # (Auto) 3.16 1.2-3.4 K/uL Monocytes # (Auto) 0.70 0.11-0.59 K/uL Eosinophils # (Auto) 0.19 0-0.5 K/uL Basophils # (Auto) 0.04 0-0.2 K/uL RDW Standard Deviation 50.9 36.4-46.3 fL RDW Coefficient of Variation 16.4 11.5-14.5 % Immature Granulocyte % (Auto) 0.4 % Immature Granulocyte # (Auto) 0.04 0.00-0.02 K/uL Sodium Level 142 136-145 mmol/L Potassium Level 4.3 3.5-5.1 mmol/L Chloride Level 109 98-107 mmol/L Carbon Dioxide Level 26 21-32 mmol/L Anion Gap 7.0 3-11 mmol/L Blood Urea Nitrogen 15 7-18 mg/dl Creatinine 1.10 0.60-1.40 mg/dl Est Creatinine Clear Calc Drug Dose 88.3 ml/min Estimated GFR () 100.3 Estimated GFR (Non- 86.5 BUN/Creatinine Ratio 13.2 10-20 Random Glucose 85 70-99 mg/dl Calcium Level 9.1 8.5-10.1 mg/dl Total Bilirubin 0.4 0.2-1 mg/dl Direct Bilirubin < 0.1 0-0.2 mg/dl Aspartate Amino Transf (AST/SGOT) 24 15-37 U/L Alanine Aminotransferase (ALT/SGPT) 33 12-78 U/L Alkaline Phosphatase 88 45-117 U/L Total Protein 8.4 6.4-8.2 gm/dl Albumin 4.2 3.4-5.0 gm/dl Lipase 188 73-393 U/L Impression Assessment and Plan ABDOMINAL PAIN/ BLOODY DIARRHEA Possible Crohn's flare, rule out infectious colitis History of Crohn's disease s/p ileocecetomy 02/2014, on Humira [id number] (last dose 11/02/16) Last colonoscopy 01/2015- Patent end-to-side ileo-colonic anastomosis, characterized by ulceration. Biopsied- ulceration with granulation tissue and acute inflammation, negative for dysplasia and malignancy Afebrile, no leukocytosis, hemoglobin stable (14.1) ER talked to a [facility] GI provider who recommended CT a/p and stool studies Follow results of CT and stool studies IVF's, pain control with IV Dilaudid PRN, continue Bentyl PRN cramping Consult GI- discussed with Dr. Pineda, recommended Solu-Medrol 20 mg q6 and diet as tolerated CHRONIC PAIN Takes oxycodone 10 mg q4h PRN chronic back and hip pain at home- hold while on IV Dilaudid Continue methocarbamol PRN DEPRESSION Continue sertraline GERD Continue PPI [place] PRESCRIPTION DRUG MONITORING PROGRAM DOCUMENTATION PDMP database queried. Findings: on 10/22/2016 filled oxycodone HCL 5 MG tabs (60.0) Rx by Dr. Smith, and oxycodone 10 mg tabs (90) Rx by Dr. Andino Action: needs to be addressed with the patient why he is filling oxycodone from two different prescribers FULL CODE DVT PROPHYLAXIS SCD's DISPOSITION Admission med/ surg Follows with Dr. Smith for primary care Patient seen in collaboration with Dr. Cowan. Please see his addendum. ATTENDING ADDENDUM delayed entry date of service as noted above care coordinated with RICHELLE Stein please refer to her notes for full details, I agree with her notes patient seen and examined, records reviewed by myself as well on exam, patient seen resting in bed, mild distress due to pain but pleasant states he has intermittent generalized abdominal pain, moderate to severe no hematochezia since admission no other symptoms VS noted and reviewed orientedx 3 , not in distress, speaks in sentences with no effort nor accessory muscle use normal rate, regular rhythm, no murmurs clear breath sounds bilaterally non distended, normal bowel sounds, soft, mild tenderness on all quadrants no bipedal edema, erythema, warmth no neuro deficits WBC 10.[address] abdomen: 1. Postsurgical changes of ileocolic anastomosis. No bowel obstruction. No CT evidence of acute or chronic inflammatory bowel disease. 2. 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 ASSESSMENT/PLAN> POSSIBLE CROHN'S DISEASE FLARE - Solumedrol per GI recommendations PRN analgesics CHRONIC PAIN SYNDROME - on IV Dilaudid database queried other diagnoses and plan of care as per RICHELLE Stein's recommendations Luis Daniel Cowan MD Advanced Directives Existing Living Will: No Existing Power of Slope Hoist Operator: No VTE Prophylaxis VTE Risk Assessment Done? Y/N: Yes Risk Level: Moderate Given or contraindicated: SCD's
[2016-11-05] MEDS ORDERED: PNEUMOCOCCAL POLYSACCHARIDES 25 MCG/0.5 ML VIAL/SYR IM. ONE (18:30)
[2016-11-05] MEDS ORDERED: INFLUENZA ADMINISTRATION CHARGE ONE (18:30)
[2016-11-05] MEDS ORDERED: INFLUENZA VIRUS QUAD VACCINE 0.5 ML SYR IM. ONE (18:30)
[2016-11-05] MEDS ORDERED: OPTIRAY 320 IV PRN (18:30)
[2016-11-05] MEDS ORDERED: PNEUMOCOCCAL ADMINISTRATION CHARGE ONE (18:30)
[2016-11-05 19:05] VITALS: BP 159/101
--- NOTE | 2016-11-05 19:27 | DIAGNOSTIC IMAGING REPORT ---
ABD/PELVIS IV AND ORAL CONT CLINICAL HISTORY: 36 years-old Male presenting with Crohn's Colitis history, Abdominal pain. TECHNIQUE: Multidetector CT of the abdomen and pelvis was performed after the administration of oral and intravenous contrast. IV contrast: 116 mL of Optiray 320. A dose lowering technique was used consistent with the principles of ALARA (as low as reasonably achievable). COMPARISON: 01/19/2016. CT DOSE (mGy.cm): The estimated cumulative dose is 368.53 mGycm. FINDINGS: Cylinder Devalver topogram: Unremarkable. Lung bases: Lung bases clear. Normal heart size. No pericardial or pleural effusion. Liver: Normal morphology. No liver lesion. Patent hepatic vasculature. Biliary: No intrahepatic or extrahepatic biliary ductal dilatation. Normal gallbladder. Pancreas: Normal. Spleen: Normal. Adrenal glands: Normal. Kidneys and ureters: Few hypodensities in the right kidney at the lower pole, unchanged from prior and likely cysts. No hydronephrosis. Ureters normal. Bladder: Normal. Pelvic organs: Prostate and seminal vesicles normal. Bowel: Postsurgical changes of an ileocolic anastomosis, which is widely patent. No colonic wall thickening or loss of haustrations. No gross evidence of small bowel wall thickening. No bowel obstruction. Peritoneal cavity: No free fluid or intraperitoneal gas. Vasculature: Aorta and IVC patent and normal in caliber. Lymph nodes: No enlarged lymph nodes in the abdomen or pelvis. Decreased prominence of mesenteric lymph nodes. Abdominal wall: Normal. Musculoskeletal: Mild erosive changes and subchondral sclerosis at the bilateral sacroiliac joints. Subtle erosive changes of the endplates also suggested at multiple levels. No evidence of syndesmophytosis. IMPRESSION: 1. Postsurgical changes of ileocolic anastomosis. No bowel obstruction. No CT evidence of acute or chronic inflammatory bowel disease. 2. 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 Electronically signed by: Ezio Langley M.D. 11/05/2016 7:25 PM Dictated Date/Time: 11/05/2016 7:16 PM
[2016-11-05] MEDS: METHYLPREDNISOLONE IV 20 MG in SYRINGE 0 ML IV SCH ×2 (20:03→23:38)
[2016-11-05] MEDS: PANTOprazole SOD 40 MG TAB PO SCH (20:04)
[2016-11-05] MEDS: DICYCLOMINE HCL 20 MG TAB PO PRN (20:04)
[2016-11-05 20:06] VITALS: BP 133/78
[2016-11-05] MEDS ORDERED: SERTRALINE HCL 50 MG TAB PO ONE (21:36)
--- NOTE | 2016-11-05 21:44 | EMERGENCY ROOM VISIT NOTE ---
History Report prepared by Prem: Isaac Luz Under the Supervision of: Dr. Orestes Valenzuela M.D. First contact with patient: 13:58 Chief Complaint: ABDOMINAL PAIN Stated Complaint: CROHN'S FLARE-UP History of Present Illness The patient is a 36 year old male who presents to the Emergency Room with complaints of worsening, severe, right lower abdominal cramping beginning 4 days ago. The patient states he has a history of Crohn's Disease, and his symptoms are similar to his previous episodes, except he states he normally has more diarrhea with his exacerbations. He reports a week ago, his stool was loose , and he experienced hematochezia. The bleeding has since stopped. The patient notes four days ago, his right lower abdomen began to hurt. He states he stopped eating 5-6 days ago, and then he tried eating soup 4 days ago. The patient reports his abdomen began to hurt, and within three hours of eating, he experienced diarrhea. He notes this morning he woke, and his cramps were still there. The patient states he can tolerate his discomfort when lying down, but when he walks, his pain intensifies to a 7-10/10 in severity. He reports he was not able to withstand the discomfort at work, so he came to the ED. The patient denies fevers, vomiting, and urinary symptoms. He notes he is currently on Humira and Bentyl. Source of History: patient Onset: 4 days ago Position: abdomen (RLQ) Symptom Intensity: severe Quality: cramping Timing: worsening Modifying Factors (Worsening): movement (walking) Associated Symptoms: + hematochezia, + diarrhea, No fevers, No vomiting, No urinary symptoms Review of Systems See HPI for pertinent positives & negatives. A total of 10 systems reviewed and were otherwise negative. Past Medical & Surgical Medical Problems: (1) Abdominal pain (2) Chronic pain (3) Crohn disease (4) Crohns disease (5) Crohns disease (6) Exacerbation of Crohn's disease (7) Exacerbation of Crohn's disease (8) GERD (gastroesophageal reflux disease) (9) GERD (gastroesophageal reflux disease) (10) Hematochezia (11) Lumbago (12) Nausea, vomiting, and diarrhea (13) Right sided abdominal pain (14) Sacroiliitis (15) Strain of left pectoralis muscle (16) Strain of left pectoralis muscle (17) Thoracic back pain Surgical Problems: (1) History of partial colectomy (2) S/p ileocectomy (3) Status post small bowel resection Family History Diabetes mellitus FH: heart disease FHx: cancer Social History Smoking Status: Light Tobacco Smoker Alcohol Use: occasionally Drug Use: marijuana Marital Status: single Housing Status: lives with family Occupation Status: unemployed Current/Historical Medications Scheduled Adalimumab (Humira Pen), 40 MG SQ Q2 WEEKS Diclofenac (Voltaren), 75 MG PO BID Omeprazole (Prilosec), 20 MG PO BID Sertraline (Zoloft), 25 MG PO DAILY Scheduled PRN Dicyclomine Hcl (Bentyl), 20 MG PO DAILY PRN for abdominal cramping Methocarbamol (Robaxin), 500 MG PO TID PRN for Muscle Spasms Oxycodone Hcl (Oxycodone Hcl), 1 TAB PO Q4H PRN for Pain Allergies Coded Allergies: Acetaminophen (Verified Allergy, Intermediate, HIVES, 11/05/16) NSAIDs (Verified Allergy, Unknown, contraindicated hx bleeding ulcers, ) Infliximab (Verified Adverse Reaction, Severe, NAUSEA, EMESIS, FLUSHING, HIVES, HYPERTENSION, PALLOR, 11/05/16) PT RECEIVING 3RD DOSE OF REMICADE (1ST AT [facility]) AND DEVELOPED THE FOLLOWING SYMPTOMS 13 MINUTES INTO MEDICATION: NAUSE, EMESIS, FLUSHING, HIVES ON FACE, BACK, ABDOMEN, CHEST, AND BELOW RIGHT EYE; HYPERTENSION, PALLOR. DENIES ANY DIFFICULTY SWALLOWING OR BREATHING/NO SOB. MEDICATION STOPPED IMMEDIATELY WITH NSS UP AT 125 CC/HR. Physical Exam Vital Signs Date Time Temp Pulse Resp B/P (MAP) Pulse Ox O2 Delivery O2 Flow Rate FiO2 11/05/16 16:31 Room Air 11/05/16 15:57 59 20 140/78 97 Room Air 11/05/16 14:40 66 17 154/85 98 Room Air 11/05/16 13:40 36.9 69 17 159/101 98 Room Air Physical Exam Constitutional: Vital signs reviewed. Eyes: Pupils are equal round reactive to light. Conjunctiva are noninjected. ENT: Pharynx is clear without erythema or exudate. Mucous membranes are moist. Neck supple without meningeal signs. Respiratory: Clear to auscultation bilaterally. Breath sounds are equal bilaterally. Cardiovascular: Regular rate and rhythm. No rubs or gallops. GI: Soft, nondistended and tender to the right lower quadrant. No guarding. Bowel sounds are present. Musculoskeletal: No peripheral edema. Integumentary: No cyanosis. Neurological: The patient is awake and alert. No focal deficits. Psychiatric: Normal affect. Medical Decision & Procedures Laboratory Results 11/05/16 13:56 Red Blood Count 5.18, Mean Corpuscular Volume 84.9, Mean Corpuscular Hemoglobin 27.2, Mean Corpuscular Hemoglobin Concent 32.0, Neutrophils (%) (Auto) 60.8, Lymphocytes (%) (Auto) 30.0, Monocytes (%) (Auto) 6.6, Eosinophils (%) (Auto) 1.8, Basophils (%) (Auto) 0.4, Neutrophils # (Auto) 6.40, Lymphocytes # (Auto) 3.16, Monocytes # (Auto) 0.70, Eosinophils # (Auto) 0.19, Basophils # (Auto) 0.04 11/05/16 13:56 Test 11/05/16 13:56 White Blood Count 10.53 K/uL (4.8-10.8) Red Blood Count 5.18 M/uL (4.7-6.1) Hemoglobin 14.1 g/dL (14.0-18.0) Hematocrit 44.0 % (42-52) Mean Corpuscular Volume 84.9 fL (80-100) Mean Corpuscular Hemoglobin 27.2 pg (25-34) Mean Corpuscular Hemoglobin Concent 32.0 g/dl (32-36) Platelet Count 239 K/uL (130-400) Neutrophils (%) (Auto) 60.8 % Lymphocytes (%) (Auto) 30.0 % Monocytes (%) (Auto) 6.6 % Eosinophils (%) (Auto) 1.8 % Basophils (%) (Auto) 0.4 % Neutrophils # (Auto) 6.40 K/uL (1.4-6.5) Lymphocytes # (Auto) 3.16 K/uL (1.2-3.4) Monocytes # (Auto) 0.70 K/uL (0.11-0.59) Eosinophils # (Auto) 0.19 K/uL (0-0.5) Basophils # (Auto) 0.04 K/uL (0-0.2) RDW Standard Deviation 50.9 fL (36.4-46.3) RDW Coefficient of Variation 16.4 % (11.5-14.5) Immature Granulocyte % (Auto) 0.4 % Immature Granulocyte # (Auto) 0.04 K/uL (0.00-0.02) Anion Gap 7.0 mmol/L (3-11) Est Creatinine Clear Calc Drug Dose 88.3 ml/min Estimated GFR () 100.3 Estimated GFR (Non- 86.5 BUN/Creatinine Ratio 13.2 (10-20) Calcium Level 9.1 mg/dl (8.5-10.1) Total Bilirubin 0.4 mg/dl (0.2-1) Direct Bilirubin < 0.1 mg/dl (0-0.2) Aspartate Amino Transf (AST/SGOT) 24 U/L (15-37) Alanine Aminotransferase (ALT/SGPT) 33 U/L (12-78) Alkaline Phosphatase 88 U/L (45-117) Total Protein 8.4 gm/dl (6.4-8.2) Albumin 4.2 gm/dl (3.4-5.0) Lipase 188 U/L (73-393) Laboratory results as reviewed by me. Medications Administered Medications (Trade) Dose Ordered Sig/Petar Route Start Time Stop Time Status Last Admin Dose Admin Ondansetron HCl (Zofran Inj) 4 mg NOW STAT IV 11/05/16 14:17 11/05/16 14:18 DC 11/05/16 14:39 4 MG Morphine Sulfate (MoRPHine SULFATE INJ) 4 mg NOW STAT IV 11/05/16 14:18 11/05/16 14:20 DC 11/05/16 14:40 4 MG Sodium Chloride 1,000 ml @ 999 mls/hr Q1H1M ONCE IV 11/05/16 14:30 11/05/16 15:51 DC 11/05/16 14:40 999 MLS/HR Sodium Chloride 1,000 ml @ 125 mls/hr Q8H IV 11/05/16 14:30 11/05/16 18:53 DC 11/05/16 17:31 125 MLS/HR Hydromorphone HCl (Dilaudid Inj) 0.5 mg NOW STAT IV 11/05/16 15:12 11/05/16 15:51 DC 11/05/16 15:32 0.5 MG ED Course 1401: The patient was evaluated in room B05 by the resident under my supervision. A complete history and physical exam was performed. 1417: Ordered Ondansetron HCl 4 mg IV 1418: Ordered Morphine Sulfate 4mg IV 1428: The patient was evaluated by me. A complete history and physical exam was performed. 1430: Ordered Sodium Chloride 1000 ml @ 125 mls/hr IV, Sodium Chloride 1000 ml @ 999 mls/hr IV, Sodium Chloride 1000 ml @ 125 mls/hr IV, Sodium Chloride 1000 ml @ 999 mls/hr IV Ordered Hydromorphone HCl 0.5mg IV 1543: The resident discussed the patient's case with TREVOR Murillo. She suggested the patient receive a CT and stool cultures. She also suggested the patient be evaluated by the hospitalist for possible IV antibiotics. 1553: The resident discussed the patient's case with Fatuma Stein PA-C [facility] Hospitalist. The patient will be evaluated for further treatment. Medical Decision This is a 36-year-old male who presents with abdominal pain. Differential diagnosis includes Crohn's exacerbation, ileitis, abscess, fistula, enteritis. I did perform a limited focused review of portions of the patient's old chart on the electronic medical record. The patient was admitted in January for a Crohn's flare. Blood Pressure Screening: Patient was found to have an elevated blood pressure and was referred to their primary doctor for recheck and further treatment. Medication Reconciliation: I attest that I have personally reviewed the patient' s current medication list. I did evaluate the patient as noted above. IV access was established. The patient was treated with IV morphine and Zofran. I did order and personally review the patient's urinalysis as described above. I did order and review the patient's blood work as noted in the electronic medical record. His white blood cell count is elevated. On reassessment he has continued pain. Is given Dilaudid IV. The case was discussed with gastroenterology who recommended CT scanning, IV steroids and hospitalization. I did order a CT of the abdomen and pelvis. This is currently pending. The case was discussed with the hospitalist and case resolution specialist. Resident Physician Supervision Note: I did evaluate and examine this patient myself. I did guide management for the patient. I agree with the resident's (Dr. Calle) assessment as discussed. Please see the resident's dictation for further details. [place] Drug Monitoring Program Search Results: patient reviewed within database, see additional documentation Drug Monitoring Findings: Oxycodone was filled on 10/15. He has 90 10s and 60 5s filled. Both prescriptions were from different providers. Consults Time Called: 1537 Consulting Physician: TREVOR Murillo GI Returned Call: [phone] The resident discussed the patient's case with TREVOR Murillo GI. She suggested the patient receive a CT and stool cultures. She also suggested the patient be evaluated by the hospitalist for possible IV antibiotics. Additional Consults: Time Called: 1573 Consulted Physician: DESMOND Toussaint Returned Call: [phone] Additional Comments: The resident discussed the patient's case with DESMOND Toussaint. The patient will be evaluated for further treatment. Impression Primary Impression: Exacerbation of Crohn's disease Scribe Attestation The scribe's documentation has been prepared under my direct and personally reviewed by me in its entirety. I confirm that the note above accurately reflects all work, treatment, procedures, and medical decision making performed by me. Departure Information Dispostion Being Evaluated By Hospitalist Kevin Lutz M.D. (PCP) Patient Instructions [facility] Problem Qualifiers Primary Impression: Exacerbation of Crohn's disease Digestive disease complication type: without complication Qualified Codes: K50.90 - Crohn's disease, unspecified, without complications
[2016-11-05] MEDS: HYDROmorphone INJ 0.5 MG/0.5 ML SYR IV PRN (23:38)
[2016-11-05 23:43] VITALS: BP 110/64; PULSE 44; TEMP 36.5; O2SAT 95
[2016-11-06] MEDS: SODIUM CHLORIDE 0.9% 1000ML 1,000 ML IV SCH ×3 (01:43→18:04)
[2016-11-06] MEDS: METHYLPREDNISOLONE IV 20 MG in SYRINGE 0 ML IV SCH ×3 (05:52→19:32)
[2016-11-06 07:45] VITALS: BP 104/65; PULSE 58; TEMP 36.6; O2SAT 98
[2016-11-06 07:59] LABS: HEMATOCRIT 40.8 % (42-52); MEAN CELL VOLUME 84.8 fL (80-100); MEAN CORPUSCULAR HEMOGLOBIN 27.2 pg (25-34); MEAN CORPUSCULAR HGB CONC 32.1 g/dl (32-36); MEAN PLATELET VOLUME 13.5 fL (7.4-10.4); PLATELET COUNT 204 K/uL (130-400); RED BLOOD COUNT 4.81 M/uL (4.7-6.1); WHITE BLOOD COUNT 14.38 K/uL (4.8-10.8)
[2016-11-06] MEDS ORDERED: SERTRALINE HCL 50 MG TAB PO SCH ×2 (09:00→21:00)
[2016-11-06] MEDS: PANTOprazole SOD 40 MG TAB PO SCH ×2 (09:02→21:05)
[2016-11-06] MEDS: DICYCLOMINE HCL 20 MG TAB PO PRN (09:51)
[2016-11-06] MEDS: HYDROmorphone INJ 0.5 MG/0.5 ML SYR IV PRN ×3 (09:55→21:12)
--- NOTE | 2016-11-06 14:07 | Gastrointestinal Consultation ---
Gastrointestinal Consultation Date of Consultation: Nov 06, 2016 Attending Physician: Luis Daniel Cowan Consulting Physician: Norm Pineda Reason for Consultation: Possible Crohn's flare History of Present Illness Patient is a 36 year old male w Crohn's disease s/p ileocecectomy currently maintained on Humira who presented to ED w c/o abd pain and cramping. A week ago he noticed diarrhea w BRBPR. Stool forming up but over weekend started to get loose again. He was using Dicyclomine 40mg each time he gets abd cramping which is located like "L" shape along R abd to RLQ, then across lower abd area. He denies any fever, but been cold sweat, no CP, SOB, denies any n/v. He denies any sick contact, travels. did notice 15 lbs weight loss in last 6 weeks. His last admission w similar symptoms was in August w Crohn's flare. He denies any ETOH abuse but does use marijuana which he said helps w cramping. He had hx of insurance lapse for Humira coverage, but last 4 months been compliant w Humira injection q2 weeks (last dose this past Friday) Labs showed H/H stable. WBC up 10-14 today. CMP unremarkable. Pt tolerating CL diet. He had been started on IV steroids since admission. So far 2 BMs today still looks w bright red bleeding. Last EGD/Colonoscopy in 01/2015. EGD w LA grade A reflux esophagitis. Colonoscopy showed patent anastomosis w ulceration. CT abd/pelvis yesterday: 1. Postsurgical changes of ileocolic anastomosis. No bowel obstruction. No CT evidence of acute or chronic inflammatory bowel disease. 2. 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 Cdiff negative, Stool cx pending. Past Medical/Surgical History Medical Problems: (1) Acute gastroenteritis Status: Acute (2) Contusion of left knee Status: Acute (3) Crohn's disease Status: Acute (4) Crohns disease Status: Chronic (5) Crohns disease Status: Chronic (6) Exacerbation of Crohn's disease Status: Acute (7) GERD (gastroesophageal reflux disease) Status: Chronic (8) Lumbago Status: Chronic (9) Thoracic back pain Status: Acute Past Medical History: See above GERD Sacroilitis Past Surgical History: See above Family History Diabetes mellitus FH: heart disease FHx: cancer Social History Smoking Status: Light Tobacco Smoker Alcohol Use: occasionally Drug Use: marijuana Marital Status: single Housing Status: lives with family Occupation Status: unemployed Allergies Coded Allergies: Acetaminophen (Verified Allergy, Intermediate, HIVES, 11/05/16) NSAIDs (Verified Allergy, Unknown, contraindicated hx bleeding ulcers, ) Infliximab (Verified Adverse Reaction, Severe, NAUSEA, EMESIS, FLUSHING, HIVES, HYPERTENSION, PALLOR, 11/05/16) PT RECEIVING 3RD DOSE OF REMICADE (1ST AT [facility]) AND DEVELOPED THE FOLLOWING SYMPTOMS 13 MINUTES INTO MEDICATION: NAUSE, EMESIS, FLUSHING, HIVES ON FACE, BACK, ABDOMEN, CHEST, AND BELOW RIGHT EYE; HYPERTENSION, PALLOR. DENIES ANY DIFFICULTY SWALLOWING OR BREATHING/NO SOB. MEDICATION STOPPED IMMEDIATELY WITH NSS UP AT 125 CC/HR. Current Medications Home Meds and Scripts Medications Dose Route/Sig Max Daily Dose Days Date Category Dose Instructions Zoloft (Sertraline HCl) 25 Mg Tab 25 Mg PO DAILY 11/05/16 Reported Bentyl (Dicyclomine Hcl) 20 Mg Tab 20 Mg PO DAILY PRN 11/05/16 Reported Voltaren (Diclofenac Sodium) 75 Mg Tabcr 75 Mg PO BID 11/05/16 Reported WITH FOOD Oxycodone Hcl 10 Mg Tab 1 Tab PO Q4H PRN 30 11/05/16 Reported Prilosec (Omeprazole) 20 Mg Capcr 20 Mg PO BID 08/18/16 Reported Robaxin (Methocarbamol) 500 Mg Tab 500 Mg PO TID PRN 08/18/16 Reported Humira Pen (Adalimumab) 40 Mg/0.8 Ml Kit 40 Mg SQ Q2 WEEKS 11/22/14 Reported Review of Systems Constitutional: + sweats, + weight loss, No fever, No chills Respiratory: No cough, No shortness of breath Cardiac: No chest pain Abdomen: + see HPI, + pain, + diarrhea, + GI bleeding, No nausea, No vomiting Endo: + fatigue Physical Exam Date Time Temp Pulse Resp B/P (MAP) Pulse Ox O2 Delivery O2 Flow Rate FiO2 11/06/16 08:00 Room Air 11/06/16 07:45 36.6 58 18 104/65 (78) 98 Room Air 11/06/16 00:00 Room Air 11/05/16 23:43 36.5 44 16 110/64 (79) 95 Room Air 11/05/16 20:06 133/78 (96) 11/05/16 20:00 Room Air 11/05/16 19:05 159/101 (120) 11/05/16 17:32 36.5 54 20 174/105 (128) 97 Room Air 11/05/16 16:31 Room Air 11/05/16 15:57 59 20 140/78 97 Room Air 11/05/16 14:40 66 17 154/85 98 Room Air General Appearance: WD/WN, no apparent distress Eyes: normal inspection, PERRL, EOMI Neck: supple, no JVD, trachea midline Respiratory/Chest: normal breath sounds, no respiratory distress, no accessory muscle use Cardiovascular: regular rate, rhythm, no gallop, no murmur Abdomen: normal bowel sounds, soft, + tenderness (periumbilical, lower abd area , along R side) Neurologic/Psych: alert, normal mood/affect, oriented x 3 Skin: normal color, no jaundice, no rash Laboratory Results Last 24 Hours Test 11/05/16 13:56 11/05/16 21:23 11/06/16 07:39 White Blood Count 10.53 K/uL 14.38 K/uL Red Blood Count 5.18 M/uL 4.81 M/uL Hemoglobin 14.1 g/dL 13.1 g/dL Hematocrit 44.0 % 40.8 % Mean Corpuscular Volume 84.9 fL 84.8 fL Mean Corpuscular Hemoglobin 27.2 pg 27.2 pg Mean Corpuscular Hemoglobin Concent 32.0 g/dl 32.1 g/dl Platelet Count 239 K/uL 204 K/uL Neutrophils (%) (Auto) 60.8 % Lymphocytes (%) (Auto) 30.0 % Monocytes (%) (Auto) 6.6 % Eosinophils (%) (Auto) 1.8 % Basophils (%) (Auto) 0.4 % Neutrophils # (Auto) 6.40 K/uL Lymphocytes # (Auto) 3.16 K/uL Monocytes # (Auto) 0.70 K/uL Eosinophils # (Auto) 0.19 K/uL Basophils # (Auto) 0.04 K/uL RDW Standard Deviation 50.9 fL 50.7 fL RDW Coefficient of Variation 16.4 % 16.3 % Immature Granulocyte % (Auto) 0.4 % Immature Granulocyte # (Auto) 0.04 K/uL Sodium Level 142 mmol/L Potassium Level 4.3 mmol/L Chloride Level 109 mmol/L Carbon Dioxide Level 26 mmol/L Anion Gap 7.0 mmol/L Blood Urea Nitrogen 15 mg/dl Creatinine 1.10 mg/dl Est Creatinine Clear Calc Drug Dose 88.3 ml/min Estimated GFR () 100.3 Estimated GFR (Non- 86.5 BUN/Creatinine Ratio 13.2 Random Glucose 85 mg/dl Calcium Level 9.1 mg/dl Total Bilirubin 0.4 mg/dl Direct Bilirubin < 0.1 mg/dl Aspartate Amino Transf (AST/SGOT) 24 U/L Alanine Aminotransferase (ALT/SGPT) 33 U/L Alkaline Phosphatase 88 U/L Total Protein 8.4 gm/dl Albumin 4.2 gm/dl Lipase 188 U/L Bedside Glucose 77 mg/dl Mean Platelet Volume 13.5 fL Impression Patient is a 36 year old male w Crohn's disease s/p ileocecectomy currently on Humira injections [id number], admitted for diarrhea and rectal bleeding, abd cramping. Cdiff negative, stool cx pending. CT abd/pelvis showed no signs of inflammation or bowel wall thickening to indicate active disease. Plan - CL diet for now; will discuss w Dr. Pineda about possible colonoscopy eval to restage disease and decide if he would need different med agent. - Dicyclomine 20mg TID prn abd cramping - Continue Methylprednisolone 20mg IV q8hrs - F/U stool cx Attg addendum: I interviewed and examined pt, reviewed chart and labs. Pt with Crohn's s/p surgery on TNF now admit with bloody diarrhea. CT, labs WNL. Flare of IBD? IBS? infectious enteritis? Wean to oral steroids, plan fro cscopy to stage disease.
[2016-11-06 15:23] VITALS: BP 100/66; PULSE 59; TEMP 37; O2SAT 97
--- NOTE | 2016-11-06 16:53 | Progress Note ---
Subjective Date of Service: Nov 06, 2016. Subjective Pt evaluation today including: conversation w/ patient, physical exam, lab review, review of studies, review of inpatient medication list Saw/examined the patient in room 260 He is doing okay, abdominal pain persists felt feverish, no recorded temps +bloody stool Problem List Medical Problems: (1) Acute gastroenteritis Status: Acute (2) Contusion of left knee Status: Acute (3) Crohn's disease Status: Acute (4) Crohns disease Status: Chronic (5) Crohns disease Status: Chronic (6) Exacerbation of Crohn's disease Status: Acute (7) GERD (gastroesophageal reflux disease) Status: Chronic (8) Lumbago Status: Chronic (9) Thoracic back pain Status: Acute Review of Systems Constitutional: + fever, No chills Respiratory: No shortness of breath Cardiac: No chest pain Abdomen: + pain, + diarrhea, + GI bleeding, No nausea, No vomiting Medications Current Inpatient Medications Medications (Trade) Dose Ordered Sig/Petar Route Start Time Stop Time Status Last Admin Dose Admin Ondansetron HCl (Zofran Inj) 4 mg Q6H PRN IV 11/05/16 17:15 12/05/16 17:14 11/05/16 21:31 4 MG Dicyclomine HCl (Bentyl Tab) 20 mg DAILY PRN PO 11/05/16 17:15 12/05/16 17:14 11/06/16 09:51 20 MG Methocarbamol (Robaxin Tab) 500 mg TID PRN PO 11/05/16 17:15 12/05/16 17:14 Pantoprazole Sodium (Protonix Tab) 40 mg BID PO 11/05/16 21:00 12/05/16 20:59 11/06/16 09:02 40 MG Sodium Chloride 1,000 ml @ 125 mls/hr Q8H IV 11/05/16 19:00 12/05/16 18:59 11/06/16 09:55 125 MLS/HR Hydromorphone HCl (Dilaudid Inj) 0.5 mg Q4H PRN IV 11/05/16 21:30 11/19/16 21:29 11/06/16 15:26 0.5 MG Ioversol (Optiray 320) 100 ml UD PRN IV 11/05/16 18:30 11/09/16 18:29 Sertraline HCl (Zoloft Tab) 25 mg HS PO 11/06/16 21:00 12/06/16 08:59 Methylprednisolone Sodium Succinate 20 mg/Syringe 0.32 ml @ 1.5 mls/min Q8H IV 11/06/16 20:00 12/06/16 19:59 Objective Vital Signs Date Time Temp Pulse Resp B/P (MAP) Pulse Ox O2 Delivery O2 Flow Rate FiO2 11/06/16 16:00 Room Air 11/06/16 15:23 37.0 59 18 100/66 (77) 97 11/06/16 08:00 Room Air 11/06/16 07:45 36.6 58 18 104/65 (78) 98 Room Air 11/06/16 00:00 Room Air 11/05/16 23:43 36.5 44 16 110/64 (79) 95 Room Air 11/05/16 20:06 133/78 (96) 11/05/16 20:00 Room Air 11/05/16 19:05 159/101 (120) 11/05/16 17:32 36.5 54 20 174/105 (128) 97 Room Air Physical Exam General Appearance: + mild distress (secondary to pain) Respiratory/Chest: no respiratory distress, no accessory muscle use Cardiovascular: regular rate, rhythm, no edema, no murmur Abdomen: + tenderness Laboratory Results Last 24 Hours Test 11/05/16 21:23 11/06/16 07:39 Bedside Glucose 77 mg/dl White Blood Count 14.38 K/uL Red Blood Count 4.81 M/uL Hemoglobin 13.1 g/dL Hematocrit 40.8 % Mean Corpuscular Volume 84.8 fL Mean Corpuscular Hemoglobin 27.2 pg Mean Corpuscular Hemoglobin Concent 32.1 g/dl RDW Standard Deviation 50.7 fL RDW Coefficient of Variation 16.3 % Platelet Count 204 K/uL Mean Platelet Volume 13.5 fL Assessment and Plan This is a 36 year old male with a PMH of Crohn's disease on Humira, sacroiliitis on long-term opioid therapy presents with bloody diarrhea and abdominal pain Crohn's Flare appreciate GI input currently on a clear liquid diet abdominal CT does not suggest bowel wall thickening currently on IV steroids plan to switch to oral steroids in AM possibly colonoscopy as per GI; will await further input Sacroiliitis currently getting low dose IV dilaudid will switch back to home meds in AM outpatient pain management follow-up Depression Sertraline GERD PPI DVT ppx SCDs FULL CODE
[2016-11-06] MEDS ORDERED: BISACODYL 5 MG TABEC PO ONE (17:15)
[2016-11-06] MEDS ORDERED: POLYETHYLENE (MIRALAX) 17 GM PACK PO ONE (17:30)
[2016-11-06 17:36] VITALS: BP 146/68; PULSE 62; TEMP 36.7; O2SAT 98
[2016-11-06] MEDS ORDERED: DICYCLOMINE HCL 20 MG TAB PO ONE (19:00)
[2016-11-06] MEDS: CIPROFLOXACIN 500 MG TAB PO SCH (21:06)
[2016-11-06] MEDS ORDERED: POLYETHYLENE (MIRALAX) 17 GM PACK PO SCH (21:30)
[2016-11-06 23:05] VITALS: BP 148/86; PULSE 72; TEMP 36.8; O2SAT 99
[2016-11-07] MEDS: SODIUM CHLORIDE 0.9% 1000ML 1,000 ML IV SCH ×2 (01:54→11:50)
[2016-11-07] MEDS: HYDROmorphone INJ 0.5 MG/0.5 ML SYR IV PRN ×3 (01:58→12:20)
[2016-11-07] MEDS: METHYLPREDNISOLONE IV 20 MG in SYRINGE 0 ML IV SCH (04:06)
[2016-11-07 06:50] VITALS: BP 114/66; PULSE 56; TEMP 36.7; O2SAT 99
[2016-11-07] MEDS: PANTOprazole SOD 40 MG TAB PO SCH (07:33)
[2016-11-07] MEDS: CIPROFLOXACIN 500 MG TAB PO SCH ×2 (07:33→11:51)
[2016-11-07 07:55] LABS: HEMATOCRIT 38.1 % (42-52); MEAN CELL VOLUME 84.9 fL (80-100); MEAN CORPUSCULAR HEMOGLOBIN 26.9 pg (25-34); MEAN CORPUSCULAR HGB CONC 31.8 g/dl (32-36); MEAN PLATELET VOLUME 12.9 fL (7.4-10.4); PLATELET COUNT 213 K/uL (130-400); RED BLOOD COUNT 4.49 M/uL (4.7-6.1); WHITE BLOOD COUNT 14.03 K/uL (4.8-10.8)
[2016-11-07 08:30] LABS: BUN/CREATININE RATIO 8.6 (10-20); CALCIUM 8.5 mg/dl (8.5-10.1); CREATININE 0.97 mg/dl (0.60-1.40); POTASSIUM 4.1 mmol/L (3.5-5.1)
[2016-11-07] MEDS ORDERED: FENTANYL CITRATE INJ 50 MCG/1 ML 2 ML VIAL ONE (10:27)
[2016-11-07] MEDS ORDERED: MIDAZOLAM HCL 1 MG/ML 2ML VIAL ONE (10:29)
[2016-11-07] MEDS ORDERED: PROPOFOL IV EMULSION 10 MG/ML 20 ML VIAL IV ONE (10:30)
[2016-11-07] MEDS ORDERED: LIDOCAINE HCL 2% 2 ML VIAL (20MG/ML) ONE (10:30)
--- NOTE | 2016-11-07 10:55 | GI REPORT ---
Procedure Date: 11/07/2016 10:27 AM Procedure: Colonoscopy Indications: Follow-up of Crohn's disease Medicines: See the Anesthesia note for documentation of the administered medications Complications: No immediate complications. Estimated Blood Loss: Estimated blood loss: none. Procedure: Pre-Anesthesia Assessment: - ASA Grade Assessment: II - A patient with mild systemic disease. After I obtained informed consent, the scope was passed under direct vision. Throughout the procedure, the patient's blood pressure, pulse, and oxygen saturations were monitored continuously. The scope was introduced through the anus and advanced to the terminal ileum. The colonoscopy was performed without difficulty. The patient tolerated the procedure well. The quality of the bowel preparation was good. Findings: The perianal and digital rectal examinations were normal. There was an unremarkable ileocolonic anastamosis in the right colon. Hemorrhoids on retroflexion. The colon was otherwise normal. The ileum was deeply intubated - approximately 40 cm of ileum was examined. The ileum was normal. There was no evidence of active Crohn's. Random biopsies taken from ileum and from colon. Impression: No evidence of active Crohn's disease. Recommendation: - Discharge patient to floor. Adv diet today. OK for d/c if tolerates PO well. Bentyl for PRN. Empiric abx for bact overgrowth. Norm Pineda M.D. Norm Pineda MD 11/07/2016 10:55:01 AM This report has been signed electronically. Note Initiated On: 11/07/2016 10:27 AM I attest to the content of the Intraoperative Record and orders documented therein, exceptions below
--- NOTE | 2016-11-07 11:39 | Anesthesiology Progress Note ---
Anesthesia Post Op Note Date & Time Nov 07, 2016 at 11:39 Vital Signs Pain Intensity: 7.0 Vital Signs Past 12 Hours Date Time Temp Pulse Resp B/P (MAP) Pulse Ox O2 Delivery O2 Flow Rate FiO2 11/07/16 11:26 50 20 118/78 (91) 99 Room Air 11/07/16 11:11 54 20 136/85 (102) 99 Room Air 11/07/16 10:57 59 20 102/58 (73) 99 Room Air 11/07/16 09:31 36.8 63 20 120/61 (80) 98 Room Air 11/07/16 08:00 Room Air 11/07/16 06:50 36.7 56 18 114/66 (82) 99 Room Air 11/07/16 00:00 Room Air Notes Mental Status: alert / awake / arousable, participated in evaluation Pt Amnestic to Procedure: Yes Nausea / Vomiting: adequately controlled Pain: adequately controlled Airway Patency, RR, SpO2: stable & adequate BP & HR: stable & adequate Hydration State: stable & adequate Anesthetic Complications: no major complications apparent
[2016-11-07] MEDS: DICYCLOMINE HCL 20 MG TAB PO PRN (11:50)
[2016-11-07 11:51] VITALS: BP 135/74; PULSE 51; TEMP 36.3; O2SAT 99
[2016-11-07 12:18] VITALS: BP 146/74; PULSE 66; O2SAT 100
--- NOTE | 2016-11-07 15:33 | Progress Note ---
Subjective Date of Service: Nov 07, 2016. Subjective Pt evaluation today including: conversation w/ patient, physical exam, lab review, review of studies, review of inpatient medication list Saw/examined the patient in room 260 No problems/issues to note s/p colonoscopy now tolerating diet Problem List Medical Problems: (1) Acute gastroenteritis Status: Acute (2) Contusion of left knee Status: Acute (3) Crohn's disease Status: Acute (4) Crohns disease Status: Chronic (5) Crohns disease Status: Chronic (6) Exacerbation of Crohn's disease Status: Acute (7) GERD (gastroesophageal reflux disease) Status: Chronic (8) Lumbago Status: Chronic (9) Thoracic back pain Status: Acute Review of Systems Constitutional: No fever, No chills Respiratory: No shortness of breath Cardiac: No chest pain Abdomen: + pain, No nausea, No vomiting, No diarrhea, No constipation, No GI bleeding Medications Current Inpatient Medications Medications (Trade) Dose Ordered Sig/Petar Route Start Time Stop Time Status Last Admin Dose Admin Ondansetron HCl (Zofran Inj) 4 mg Q6H PRN IV 11/05/16 17:15 12/05/16 17:14 11/05/16 21:31 4 MG Dicyclomine HCl (Bentyl Tab) 20 mg DAILY PRN PO 11/05/16 17:15 12/05/16 17:14 11/07/16 11:50 20 MG Methocarbamol (Robaxin Tab) 500 mg TID PRN PO 11/05/16 17:15 12/05/16 17:14 Pantoprazole Sodium (Protonix Tab) 40 mg BID PO 11/05/16 21:00 12/05/16 20:59 11/06/16 21:05 40 MG Sodium Chloride 1,000 ml @ 125 mls/hr Q8H IV 11/05/16 19:00 12/05/16 18:59 11/07/16 11:50 125 MLS/HR Hydromorphone HCl (Dilaudid Inj) 0.5 mg Q4H PRN IV 11/05/16 21:30 11/19/16 21:29 11/07/16 12:20 0.5 MG Ioversol (Optiray 320) 100 ml UD PRN IV 11/05/16 18:30 11/09/16 18:29 Sertraline HCl (Zoloft Tab) 25 mg HS PO 11/06/16 21:00 12/06/16 08:59 11/06/16 21:06 25 MG Ciprofloxacin (Cipro Tab) 500 mg BID PO 11/06/16 21:00 11/16/16 20:59 11/07/16 11:51 500 MG Objective Vital Signs Date Time Temp Pulse Resp B/P (MAP) Pulse Ox O2 Delivery O2 Flow Rate FiO2 11/07/16 12:18 66 18 146/74 (98) 100 Room Air 11/07/16 11:51 36.3 51 18 135/74 (94) 99 Room Air 11/07/16 11:26 50 20 118/78 (91) 99 Room Air 11/07/16 11:11 54 20 136/85 (102) 99 Room Air 11/07/16 10:57 59 20 102/58 (73) 99 Room Air 11/07/16 09:31 36.8 63 20 120/61 (80) 98 Room Air 11/07/16 08:00 Room Air 11/07/16 06:50 36.7 56 18 114/66 (82) 99 Room Air 11/07/16 00:00 Room Air 11/06/16 23:05 36.8 72 18 148/86 (106) 99 Room Air 11/06/16 20:00 Room Air 11/06/16 17:36 36.7 62 18 146/68 98 Room Air 11/06/16 16:00 Room Air Physical Exam General Appearance: no apparent distress Respiratory/Chest: no respiratory distress, no accessory muscle use Cardiovascular: regular rate, rhythm, no edema Abdomen: normal bowel sounds, non tender, soft Laboratory Results Last 24 Hours Test 11/07/16 07:45 11/07/16 10:36 White Blood Count 14.03 K/uL Red Blood Count 4.49 M/uL Hemoglobin 12.1 g/dL Hematocrit 38.1 % Mean Corpuscular Volume 84.9 fL Mean Corpuscular Hemoglobin 26.9 pg Mean Corpuscular Hemoglobin Concent 31.8 g/dl RDW Standard Deviation 51.9 fL RDW Coefficient of Variation 16.7 % Platelet Count 213 K/uL Mean Platelet Volume 12.9 fL Sodium Level 143 mmol/L Potassium Level 4.1 mmol/L Chloride Level 112 mmol/L Carbon Dioxide Level 23 mmol/L Anion Gap 8.0 mmol/L Blood Urea Nitrogen 8 mg/dl Creatinine 0.97 mg/dl Est Creatinine Clear Calc Drug Dose 100.1 ml/min Estimated GFR () 116.7 Estimated GFR (Non- 100.7 BUN/Creatinine Ratio 8.6 Random Glucose 110 mg/dl Calcium Level 8.5 mg/dl Assessment and Plan This is a 36 year old male with a PMH of Crohn's disease on Humira, sacroiliitis on long-term opioid therapy presents with bloody diarrhea and abdominal pain Crohn's Flare 11/07 s/p colonoscopy unlikely Crohn's flare will d/c home with Cipro and Bentyl PRN 11/06 appreciate GI input currently on a clear liquid diet abdominal CT does not suggest bowel wall thickening currently on IV steroids plan to switch to oral steroids in AM possibly colonoscopy as per GI; will await further input Sacroiliitis currently getting low dose IV dilaudid will switch back to home meds in AM outpatient pain management follow-up Depression Sertraline GERD PPI DVT ppx SCDs FULL CODE
[2016-11-07] MEDS ORDERED: CPR500 PO (15:34)
--- NOTE | 2016-11-07 15:43 | Discharge Instructions ---
Discharge Instructions Date of Service Nov 07, 2016. Admission Reason for Admission: [facility] Disease Discharge Discharge Diagnosis / Problem: Abdominal Pain, unlikely Crohn's; possible nonspecific Enteritis Discharge Goals Goal(s): Decrease discomfort, Improve function, Diagnostic testing, Therapeutic intervention Activity Recommendations Activity Limitations: resume your previous activity . Instructions / Follow-Up Instructions / Follow-Up Please follow-up with Dr. Smith on November 13 at 1:00PM Please take Cipro, twice a day for seven days Take Bentyl as needed Current Hospital Diet Patient's current hospital diet: Regular Diet Discharge Diet Recommended Diet: Regular Diet Procedures Procedures Performed: COLONOSCOPY, BX, STOOL ASPIRATE Pending Studies Studies pending at discharge: no Medical Emergencies . Who to Call and When: Medical Emergencies: If at any time you feel your situation is an emergency, please call 911 immediately. . Non-Emergent Contact Non-Emergency issues call your: Primary Care Provider . . "Provider Documentation" section prepared by Abigail Goldsmith. . VTE Core Measure Inpt VTE Proph given/why not?: SCD's
--- NOTE | 2016-11-07 15:49 | Discharge Summary ---
Discharge Summary Date of Service Nov 07, 2016. Discharge Summary Admission Date: Nov 05, 2016 at 16:41 Discharge Date: Nov 07, 2016 Discharge Disposition: Home Principal Diagnosis: Abdominal Pain, possible Nonspecific Enteritis Medication Reconciliation New Medications: Ciprofloxacin (Ciprofloxacin HCl) 500 Mg Tab 500 MG PO BID for 7 Days, #14 TAB Continued Medications: Adalimumab (Humira Pen) 40 Mg/0.8 Ml Kit 40 MG SQ Q2 WEEKS Diclofenac (Voltaren) 75 Mg Tabcr 75 MG PO BID, TAB WITH FOOD Dicyclomine Hcl (Bentyl) 20 Mg Tab 20 MG PO DAILY PRN for abdominal cramping, TAB Methocarbamol (Robaxin) 500 Mg Tab 500 MG PO TID PRN for Muscle Spasms, TAB Omeprazole (Prilosec) 20 Mg Capcr 20 MG PO BID, CAP Oxycodone Hcl (Oxycodone Hcl) 10 Mg Tab 1 TAB PO Q4H PRN for Pain for 30 Days, #120 TAB Sertraline (Zoloft) 25 Mg Tab 25 MG PO DAILY, TAB Admission Information HPI (per Admitting provider): This is a 36 y/o male with PMH of Crohn's disease s/p ileocecectomy on Humira, chronic pain on narcotics, who presents to the ED for bloody diarrhea and abdominal cramping. Pt follows with Dr. Metzger for GI. Diarrhea started 8 days ago with blood mixed in the stool. He reports associated increased abdominal cramping for past 1 week. After a few days stool became formed with blood. Was feeling better over the weekend. Took Humira on Friday. Then last night cramps became more severe, rated 6-9/10. Today at work he developed cold sweats and 3-4 episodes of diarrhea with blood on the toilet paper, nausea with dry heaves. Nausea resolved with Zofran. He currently rates pain 5-7/10 after being treated with morphine 4 mg IV and Dilaudid 0.5 mg IV. He reports decreased PO intake over course of this illness. He reports weight loss of 15 lb over past 6 weeks. Denies fever, chest pain, SOB, cough, dysuria, frequency. Pt denies recent antibiotics. He is not currently taking steroids. He was last hospitalized in August 2016 for Crohns flare treated with steroids. Physical Exam (per Admitting): General Appearance: WD/WN, no apparent distress Head: normocephalic, atraumatic Eyes: normal inspection, sclerae normal ENT: hearing grossly normal, pharynx normal Neck: supple, trachea midline Respiratory/Chest: lungs clear, normal breath sounds, no respiratory distress, no accessory muscle use Cardiovascular: regular rate, rhythm, no murmur Abdomen/GI: normal bowel sounds, soft, + pertinent finding (diffuse tenderness to palpation especially in RLQ) Extremities/Musculoskelatal: no calf tenderness, no pedal edema Neurologic/Psych: alert, normal mood/affect, oriented x 3 Skin: normal color, warm/dry Hospital Course This is a 36 year old male with a PMH of Crohn's disease on Humira, sacroiliitis on long-term opioid therapy presents with bloody diarrhea and abdominal pain Crohn's Flare 11/07 s/p colonoscopy unlikely Crohn's flare will d/c home with Cipro and Bentyl PRN 11/06 appreciate GI input currently on a clear liquid diet abdominal CT does not suggest bowel wall thickening currently on IV steroids plan to switch to oral steroids in AM possibly colonoscopy as per GI; will await further input Sacroiliitis currently getting low dose IV dilaudid will switch back to home meds in AM outpatient pain management follow-up Depression Sertraline GERD PPI DVT ppx SCDs FULL CODE Total time spent on discharge = 25 minutes This includes examination of the patient, discharge planning, medication reconciliation, and communication with other providers. Discharge Instructions Please follow-up with Dr. Smith on November 13 at 1:00PM Please take Cipro, twice a day for seven days Take Bentyl as needed
[2016-11-07 15:52] VITALS: BP 146/74; PULSE 66; TEMP 36.3; O2SAT 100
[2016-11-08 19:01] LABS: O&P GIARDIA AG NOT DETECTED (NOT DETECTED)
== END 2016-11-07 16:00 | disposition home or self-care (01) | DRG 392 ==
LOC: C.EDB 13:32 → C.MS2W 16:41 → ENRESERV 17:06
PROVIDERS: ADMIT Internal Medicine; ATTEND Family Medicine
PROC: 0DBE8ZX Excision of Large Intestine, Via Natural or Artificial Opening Endoscopic, Diagnostic (ICD-10-PCS; principal; 2016-11-07 09:28)
PROC: 0DBB8ZX Excision of Ileum, Via Natural or Artificial Opening Endoscopic, Diagnostic (ICD-10-PCS; principal; 2016-11-07 09:28)
DX: K52.9 Noninfective gastroenteritis and colitis, unspecified (principal); K50.90 Crohn's disease, unspecified, without complications; M46.1 Sacroiliitis, not elsewhere classified; K21.9 Gastro-esophageal reflux disease without esophagitis; F32.9 Major depressive disorder, single episode, unspecified; F17.200 Nicotine dependence, unspecified, uncomplicated; Z79.899 Other long term (current) drug therapy; Z83.3 Family history of diabetes mellitus; Z82.49 Family history of ischemic heart disease and other diseases of the circulatory system

== ENCOUNTER 2017-03-06 22:38 | Inpatient (IN) | payer OTHER ==
[~2017-03-06] VITALS: Ht 175.3 cm; Wt 72.1 kg
[~2017-03-06 22:38] MED LIST changes: -DICY10CA12 PO; +DICY20TA35 PO; +OXYC-164 PO; -OXYC1TAB3 PO; +SERT25TA PO; -SERT50TA PO
[2017-03-06] MEDS ORDERED: SODIUM CHLORIDE 0.9% 1000ML 1,000 ML IV STA (23:26)
[2017-03-06] MEDS ORDERED: DiphenhydrAMINE HCL 50 MG/ML VIAL IV STA (23:26)
[2017-03-06] MEDS ORDERED: ONDANSETRON INJ 2 MG/ML 2 ML VIAL IV STA (23:26)
[2017-03-06] MEDS ORDERED: FAMOTIDINE IV INJ 20 MG in DEXTROSE 5% 100ML 100 ML IV STA (23:26)
--- NOTE | 2017-03-06 23:39 | EMERGENCY ROOM VISIT NOTE ---
History Report prepared by Prem: Ramirez Velazco Under the Supervision of: Dr. Dirk Yin M.D. First contact with patient: 23:19 Chief Complaint: GI ASSESSMENT Stated Complaint: [facility] Nursing Triage Summary: patient sent from PCP earlier today and just came to ER. has been having diarrhea and abdominal pain. with history of Chrones disease. PCP conserned of bowel obstruction patient arrived to the ER sucking on the a lollipop History of Present Illness The patient is a 36 year old male who presents to the Emergency Room with complaints of constant abdominal pain beginning a week ago. The patient states that he has not felt right recently, and that he has been vomiting twice a day for the past week. He notes that he has a history of Crohn's, but has not been taking his medicine for the past two days. He reports that he went to his PCP today, and was told that he might have a small bowel obstruction but was told to come to the emergency room. The patient complains of diarrhea and SOB. He notes he has been having bowel movements, and reports that there is blood when he wipes. The patient states that there is no blood in his diarrhea. He denies any fever and chest pain. He reports that his abdominal pain worsens when he eats. The patient states that he took hydrocodone this morning with mild relief of his symptoms. Source of History: patient Onset: a week ago Position: abdomen Timing: constant Modifying Factors (Worsening): eating Associated Symptoms: + SOB, + vomiting, + diarrhea, No fevers, No chest pain Note: He denies any change in the frequency of his bowel movements. He also complains of blood when he wipes after a bowel movement. Review of Systems See HPI for pertinent positives & negatives. A total of 10 systems reviewed and were otherwise negative. Past Medical & Surgical Medical Problems: (1) Abdominal pain (2) Acute pancreatitis (3) Chronic pain (4) Crohn disease (5) Crohn disease (6) Crohns disease (7) Crohns disease (8) Exacerbation of Crohn's disease (9) Exacerbation of Crohn's disease (10) GERD (gastroesophageal reflux disease) (11) GERD (gastroesophageal reflux disease) (12) Hematochezia (13) Lumbago (14) Nausea, vomiting, and diarrhea (15) Right sided abdominal pain (16) Sacroiliitis (17) Strain of left pectoralis muscle (18) Strain of left pectoralis muscle (19) Thoracic back pain Surgical Problems: (1) History of partial colectomy (2) S/p ileocectomy (3) Status post small bowel resection Family History Diabetes mellitus FH: heart disease FHx: cancer Social History Smoking Status: Current Every Day Smoker Alcohol Use: occasionally Drug Use: marijuana Marital Status: single Housing Status: lives with family Occupation Status: unemployed Current/Historical Medications Scheduled Adalimumab (Humira Pen), 40 MG SQ Q2 WEEKS Omeprazole (Prilosec), 20 MG PO BID Sertraline (Zoloft), 50 MG PO DAILY Scheduled PRN Dicyclomine Hcl (Bentyl), 20 MG PO DAILY PRN for abdominal cramping Methocarbamol (Robaxin), 500 MG PO TID PRN for Muscle Spasms Oxycodone Hcl (Oxycodone Hcl), 1 TAB PO TID PRN for Pain Allergies Coded Allergies: Acetaminophen (Verified Allergy, Intermediate, HIVES, 03/07/17) NSAIDs (Verified Allergy, Unknown, contraindicated hx bleeding ulcers, ) Infliximab (Verified Adverse Reaction, Severe, NAUSEA, EMESIS, FLUSHING, HIVES, HYPERTENSION, PALLOR, 03/07/17) PT RECEIVING 3RD DOSE OF REMICADE (1ST AT [facility]) AND DEVELOPED THE FOLLOWING SYMPTOMS 13 MINUTES INTO MEDICATION: NAUSE, EMESIS, FLUSHING, HIVES ON FACE, BACK, ABDOMEN, CHEST, AND BELOW RIGHT EYE; HYPERTENSION, PALLOR. DENIES ANY DIFFICULTY SWALLOWING OR BREATHING/NO SOB. MEDICATION STOPPED IMMEDIATELY WITH NSS UP AT 125 CC/HR. Physical Exam Vital Signs Date Time Temp Pulse Resp B/P (MAP) Pulse Ox O2 Delivery O2 Flow Rate FiO2 03/07/17 00:13 68 16 125/87 98 Room Air 03/06/17 22:45 36.3 88 20 151/98 95 Room Air Physical Exam GENERAL: Patient is well appearing and in mild distress. HEENT: No acute trauma, normocephalic atraumatic, mucous membranes dry, no nasal congestion, no scleral icterus. NECK: No stridor, no adenopathy, no meningismus, trachea is midline. LUNGS: No dyspnea. Clear to auscultation and equal bilaterally. No wheeze, no rhonchi. HEART: Regular rate and rhythm. No murmurs, rubs, gallops appreciated. ABDOMEN: Soft, bowel sounds positive, no masses appreciated, no peritonitis, vague diffuse tenderness. BACK: No midline tenderness, no CVA tenderness EXTREMITIES: Normal motion all extremities, no cyanosis, no edema. NEUROLOGIC: Alert and oriented, no acute motor or sensory deficits, no focal weakness, cranial nerves grossly intact. SKIN: No rash, no jaundice, no diaphoresis. Medical Decision & Procedures ER Provider Diagnostic Interpretation: Radiology results and stated below per my review and radiologist interpretation: CT ABDOMEN AND PELVIS With Contrast: Lower thorax is unremarkable. Liver, gallbladder, spleen, pancreas, and adrenal glands are unremarkable. Probable cyst within the right kidney. Otherwise, kidneys, ureters, and urinary bladder are unremarkable. Appendix is likely surgically absent. Bowel is unremarkable. No free fluid. No free air. No acute osseous abnormality. Radiologist: Sheldon Wasserman MD. Radiology results and stated below per my review and interpretation: Multiple Views Abdomen with PO Chest: Moderate amount of air in colon right lower quadrant. No obstruction, no free air, no free infiltrates. Laboratory Results 03/06/17 23:35 Red Blood Count 4.45, Mean Corpuscular Volume 87.4, Mean Corpuscular Hemoglobin 29.0, Mean Corpuscular Hemoglobin Concent 33.2, Mean Platelet Volume 13.1, Neutrophils (%) (Auto) 50.0, Lymphocytes (%) (Auto) 35.9, Monocytes (%) (Auto) 7.3, Eosinophils (%) (Auto) 5.6, Basophils (%) (Auto) 0.5, Neutrophils # (Auto) 4.58, Lymphocytes # (Auto) 3.29, Monocytes # (Auto) 0.67, Eosinophils # (Auto) 0.51, Basophils # (Auto) 0.05 03/06/17 23:35 Test 03/06/17 23:35 White Blood Count 9.16 K/uL (4.8-10.8) Red Blood Count 4.45 M/uL (4.7-6.1) Hemoglobin 12.9 g/dL (14.0-18.0) Hematocrit 38.9 % (42-52) Mean Corpuscular Volume 87.4 fL (80-100) Mean Corpuscular Hemoglobin 29.0 pg (25-34) Mean Corpuscular Hemoglobin Concent 33.2 g/dl (32-36) Platelet Count 219 K/uL (130-400) Mean Platelet Volume 13.1 fL (7.4-10.4) Neutrophils (%) (Auto) 50.0 % Lymphocytes (%) (Auto) 35.9 % Monocytes (%) (Auto) 7.3 % Eosinophils (%) (Auto) 5.6 % Basophils (%) (Auto) 0.5 % Neutrophils # (Auto) 4.58 K/uL (1.4-6.5) Lymphocytes # (Auto) 3.29 K/uL (1.2-3.4) Monocytes # (Auto) 0.67 K/uL (0.11-0.59) Eosinophils # (Auto) 0.51 K/uL (0-0.5) Basophils # (Auto) 0.05 K/uL (0-0.2) RDW Standard Deviation 47.3 fL (36.4-46.3) RDW Coefficient of Variation 14.8 % (11.5-14.5) Immature Granulocyte % (Auto) 0.7 % Immature Granulocyte # (Auto) 0.06 K/uL (0.00-0.02) Urine Color YELLOW Urine Appearance CLEAR (CLEAR) Urine pH 5.5 (4.5-7.5) Urine Specific [place] 1.009 (1.000-1.030) Urine Protein NEG (NEG) Urine Glucose (UA) NEG (NEG) Urine Ketones NEG (NEG) Urine Occult Blood NEG (NEG) Urine Nitrite NEG (NEG) Urine Bilirubin NEG (NEG) Urine Urobilinogen NEG (NEG) Urine Leukocyte Esterase NEG (NEG) Urine WBC (Auto) /hpf (0-5) Urine RBC (Auto) /hpf (0-4) Urine Hyaline Casts (Auto) /lpf (0-5) Urine Epithelial Cells (Auto) /lpf (0-5) Urine Bacteria (Auto) (NEG) Urine RBC 0-4 /hpf (0-4) Urine WBC 0 /hpf (0-5) Urine Epithelial Cells 0-5 /lpf (0-5) Urine Bacteria NEG (NEG) Anion Gap 6.0 mmol/L (3-11) Est Creatinine Clear Calc Drug Dose 97.3 ml/min Estimated GFR () 104.9 Estimated GFR (Non- 90.5 BUN/Creatinine Ratio 10.1 (10-20) Calcium Level 8.3 mg/dl (8.5-10.1) Total Bilirubin 0.2 mg/dl (0.2-1) Direct Bilirubin < 0.1 mg/dl (0-0.2) Aspartate Amino Transf (AST/SGOT) 25 U/L (15-37) Alanine Aminotransferase (ALT/SGPT) 30 U/L (12-78) Alkaline Phosphatase 76 U/L (45-117) C-Reactive Protein < 0.29 mg/dl (0-0.29) Total Protein 7.6 gm/dl (6.4-8.2) Albumin 3.8 gm/dl (3.4-5.0) Lipase 2644 U/L (73-393) Laboratory results as reviewed by me. Medications Administered Medications (Trade) Dose Ordered Sig/Petar Route Start Time Stop Time Status Last Admin Dose Admin Sodium Chloride 1,000 ml @ 999 mls/hr Q1H1M STAT IV 03/06/17 23:26 03/07/17 00:26 DC 03/06/17 23:39 999 MLS/HR Diphenhydramine HCl (Benadryl Inj) 50 mg NOW STAT IV 03/06/17 23:26 03/06/17 23:28 DC 03/06/17 23:39 50 MG Ondansetron HCl (Zofran Inj) 4 mg NOW STAT IV 03/06/17 23:26 03/06/17 23:28 DC 03/06/17 23:38 4 MG Famotidine 20 mg/ Syringe 5 ml @ 2.5 mls/min NOW STAT IV 03/07/17 00:10 03/07/17 00:11 DC 03/07/17 00:19 2.5 MLS/MIN Morphine Sulfate (MoRPHine SULFATE INJ) 6 mg NOW STAT IV 03/07/17 00:17 03/07/17 00:18 DC 03/07/17 00:24 6 MG ED Course 2322: The patient was evaluated in room C9. A complete history and physical exam was performed. 0017: I rechecked the patient. He asked that I give him something for pain. 0019: I spoke with Dr. Galeas - [facility]. He requested a CT of the patient's abdomen and a D dimer. 0054: Upon reevaluation, the patient is stable. Discussed results and treatment plan with the patient. He verbalized understanding and agreement with the treatment plan. Discussed the patient's case with Dr. Galeas - [facility]jas. The patient will be evaluated for further management. Medical Decision Differential: Crohn's flare, Diverticulitis, PUD/Gastritis, Biliary Pathology, UTI, Pyelonephritis, Renal Colic, Bowel Obstruction, amongst other pathologies entertained. 36 yr old male with worsening nausea, vomiting diarrhea over the last week associated with epigastric pain on eating. Abdominal exam with some diffuse TTP though non-surgical. Xrays non-specific. Lipase returned elevated consistent with pancreatitis. Discussed with hospitalist who asked that I order CT abdo/pelv which was fortunately benign though with pain, dehydration and Lipase elevation will bring in. I feel this is unlikely significant crohn' s exacerbation. No acute infectious findings. Medication Reconcilliation Current Medication List: was personally reviewed by me Blood Pressure Screening Patient's blood pressure: Normal blood pressure Blood pressure disposition: Did not require urgent referral Consults Time Called: 16 Consulting Physician: Dr. Galeas - [facility] Rojas. Returned Call: 18 18: I spoke with Dr. Galeas. He requested a CT of the patient's abdomen and a D dimer. 0054: Discussed the patient's case with Dr. Galeas. The patient will be evaluated for further management. Impression Primary Impression: Pancreatitis Additional Impressions: Dehydration Nausea vomiting and diarrhea Scribe Attestation The scribe's documentation has been prepared under my direction and personally reviewed by me in its entirety. I confirm that the note above accurately reflects all work, treatment, procedures, and medical decision making performed by me. Departure Information Dispostion Being Evaluated By Hospitalist Referrals Kevin Smith M.D. (PCP) Patient Instructions My [facility] Problem Qualifiers
[2017-03-06 23:43] LABS: BASO % 0.5 %; BASO ABS # 0.05 K/uL (0-0.2); EOS % 5.6 %; EOS ABS # 0.51 K/uL (0-0.5); HEMATOCRIT 38.9 % (42-52); HEMOGLOBIN 12.9 g/dL (14.0-18.0); IG# 0.06 K/uL (0.00-0.02); LYMPH % 35.9 %; LYMPH ABS # 3.29 K/uL (1.2-3.4); MEAN CELL VOLUME 87.4 fL (80-100); MEAN CORPUSCULAR HGB CONC 33.2 g/dl (32-36); MEAN PLATELET VOLUME 13.1 fL (7.4-10.4); MONO % 7.3 %; MONO ABS # 0.67 K/uL (0.11-0.59); NEUT ABS # 4.58 K/uL (1.4-6.5); PLATELET COUNT 219 K/uL (130-400); RED CELL DISTRIBUTION WIDTH CV 14.8 % (11.5-14.5); RED CELL DISTRIBUTION WIDTH SD 47.3 fL (36.4-46.3); WHITE BLOOD COUNT 9.16 K/uL (4.8-10.8)
[2017-03-07 00:09] LABS: ALBUMIN 3.8 gm/dl (3.4-5.0); ALT/SGPT 30 U/L (12-78); BLOOD UREA NITROGEN 11 mg/dl (7-18); CALCIUM 8.3 mg/dl (8.5-10.1); CARBON DIOXIDE 24 mmol/L (21-32); CREATININE 1.06 mg/dl (0.60-1.40); GLUCOSE 94 mg/dl (70-99); POTASSIUM 3.3 mmol/L (3.5-5.1); SODIUM 138 mmol/L (136-145)
[2017-03-07] MEDS ORDERED: FAMOTIDINE IV INJ 20 MG in SYRINGE 3 ML IV STA (00:10)
[2017-03-07 00:12] LABS: ALKALINE PHOSPHATASE 76 U/L (45-117); AST/SGOT 25 U/L (15-37); LIPASE 2644 U/L (73-393); TOTAL PROTEIN 7.6 gm/dl (6.4-8.2)
[2017-03-07] MEDS ORDERED: MoRPHine SULFATE 10 MG/ML CARP/VIAL IV STA (00:17)
[2017-03-07] MEDS ORDERED: OPTIRAY 320 IV PRN (00:30)
[2017-03-07] MEDS ORDERED: ONDANSETRON INJ 2 MG/ML 2 ML VIAL IV PRN (01:00)
[2017-03-07] MEDS ORDERED: FAMOTIDINE IV INJ 20 MG in DEXTROSE 5% 100ML 100 ML IV SCH (01:00)
[2017-03-07 02:19] VITALS: BP 131/92; PULSE 60; TEMP 36.4; O2SAT 99; BMI 23.5
[2017-03-07] MEDS: NSS + 20MEQ KCL 1000ML 1,000 ML IV SCH ×2 (02:49→09:24)
[2017-03-07] MEDS: MoRPHine SULFATE 4 MG/ML 1 ML CARP\\VIAL IV PRN ×3 (02:50→11:42)
--- NOTE | 2017-03-07 03:00 | HISTORY & PHYSICAL EXAMINATION ---
DATE OF ADMISSION: 03/06/2017 PRIMARY CARE PHYSICIAN: Kevin Smith MD CHIEF COMPLAINT: Nausea, vomiting, diarrhea over the last 2-3 days. HISTORY OF PRESENT COMPLAINT: He is a 36-year-old male with a significant past medical history of Crohn's disease and GERD. Apparently, he has been complaining of nausea, vomiting with diarrhea for the last 2 days. Apparently, he has had diarrhea about 4 or 5 times for the last 1 week, but the condition got worse for the last 2 days with abdominal pain and some shakes at times. He has not been able to eat anything or drink anything for the last day or two. He does not have any bleeding per rectum and he denies having any fever, chills or rigors. He does not have any cough or any shortness of breath, does not have any swelling of the legs as well. He is a social drinker and recently there is no increase of his alcohol intake. He takes usually 4-5 drinks whenever he drinks for a day. His last drink was yesterday. In the Emergency Room, he was still having pain with some abdominal distension, but no nausea and an apparent investigation showed that his lipase is elevated and consistent with an acute pancreatitis. From that point, he was admitted to medical floor. PAST MEDICAL HISTORY: Significant for Crohn's disease and GERD. PAST SURGICAL HISTORY: Laparoscopic partial colectomy in 2014 and sacroiliac joint injection in the past and he has had quite a few colonoscopies for Crohn's disease. FAMILY HISTORY: Brother has arthritis. Sister has arthritis in the lumbar region. Mother has diabetes and high blood pressure. Father has stomach cancer. SOCIAL HISTORY: He is single. He quit smoking in 2011 and he drinks alcohol about 4-6 drinks a day whenever he drinks. He uses marijuana as per the chart, but 3-4 times per day. ALLERGIES: ACETAMINOPHEN, INFLIXIMAB, AND NSAIDS. MEDICATIONS: As an outpatient, he has been on Humira 2 times a month, Bentyl 20 mg as needed, Robaxin 500 mg 3 times daily for muscle spasm, Zoloft 50 mg daily, omeprazole 20 mg twice daily, and oxycodone 1 tablet t.i.d. p.r.n. REVIEW OF SYSTEMS: Other systems review unremarkable except for those mentioned in history of present complaint. PHYSICAL EXAMINATION: GENERAL: On examination in the Emergency Room, he is still having abdominal pain, but no nausea. VITAL SIGNS: Temperature 36.3, pulse was 68, blood pressure 125/87, saturation 98% on room air. HEENT: Unremarkable. NECK: Supple. No JVD, no bruit. CHEST: Clear to auscultate bilaterally. HEART: S1, S2 regular. No murmur. ABDOMEN: Slightly distended, soft. Tender mostly in the epigastrium. No rebound tenderness. Bowel sounds present. RECTAL: Deferred. EXTREMITIES: No edema. MUSCULOSKELETAL SYSTEM: Did not show any acute arthritis involving any joint. CENTRAL NERVOUS SYSTEM: He was alert, awake, oriented x3. No focal sensory and/or motor deficit appreciated. LABORATORY DATA: Noted today white count was 9.16, H&H is 12.9/38.9, platelet was 219. Sodium 138, potassium 3.3, chloride 108, CO2 24, BUN 11, creatinine 1.06, calcium 8.3. LFTs normal. C-reactive protein less than 0.29 and lipase was 2644. Urine examination unremarkable. Chest x-ray and abdominal x-ray remains unremarkable. CT scan of the abdomen and pelvis pending right now. IMPRESSION AND PLAN: 1. Acute pancreatitis: Presented with nausea, vomiting, abdominal pain and diarrhea. Likely secondary to use of alcohol,r/o any Gall stone ,doubt due to increase in Triglycerides. Does not have any medications causint it. He will be admitted to medical floor. He will be kept n.p.o. Stool for C. diff colitis and also culture will be sent. He will be given an adequate amount of IV fluid and pain control. Gastrointestinal consultation tomorrow morning. 2. Crohn's disease. Doubt any exacerbation with this acute pancreatitis. We will continue his usual Humira as an outpatient. 3. Esophageal reflux with gastroesophageal reflux disease. We will give him IV famotidine twice daily. 4. Anxiety/depression. We will hold his Zoloft for now, but will be started as soon as possible. 5. Deep venous thrombosis prophylaxis with Lovenox. 6. Code status. He will be a full code. In my clinical assessment, the beneficiary meets criteria as per CMS for 2 midnights' stay in the hospital. AKHIL
[2017-03-07 07:31] VITALS: BP 112/71; PULSE 57; TEMP 36.8; O2SAT 99
--- NOTE | 2017-03-07 07:40 | DIAGNOSTIC IMAGING REPORT ---
PA CHEST WITH ABDOMINAL SERIES CLINICAL HISTORY: Vomiting and diarrhea. FINDINGS: A PA chest radiograph is compared to study dated 12/14/2016. Examination is mildly degraded by patient rotation. The cardiomediastinal silhouette is unremarkable. The lungs and pleural spaces are clear. No pneumothorax is seen. The bony thorax is grossly intact. Supine and erect abdominal radiographs are correlated with abdominal CT dated 11/05/2016. There is a nonobstructed abdominal bowel gas pattern. Prominent gas-filled loops of small bowel in the right lower quadrant are indeterminant significance. Fecal retention is noted throughout the colon. Moderate fecal retention is observed. Suture material is noted in the right upper quadrant. No evidence of intraperitoneal free air is seen. There are no abnormal abdominal calcifications. The lumbosacral spine and bony pelvis appear intact. IMPRESSION: 1. No active disease in the chest. 2. Nonobstructed abdominal bowel gas pattern. 3. Prominent loops of gas-filled small bowel in the right lower quadrant are of indeterminant significance. Electronically signed by: Brendan Knott M.D. 03/07/2017 7:39 AM Dictated Date/Time: 03/07/2017 7:37 AM
[2017-03-07] MEDS: ENOXAPARIN 40 MG/0.4 ML SYR SQ SCH (07:58)
--- NOTE | 2017-03-07 08:02 | DIAGNOSTIC IMAGING REPORT ---
CT SCAN OF THE ABDOMEN AND PELVIS WITH IV CONTRAST CLINICAL HISTORY: Epigastric abdominal pain. Elevated lipase. History of Crohn's disease. COMPARISON STUDY: Abdominal CT dated 11/05/2016. Abdominal radiographs dated 03/07/2017. TECHNIQUE: Following the IV administration of 119 cc of Optiray 320, CT scan of the abdomen and pelvis is performed from the lung bases to the proximal femora. Images are reviewed in the axial, sagittal, and coronal planes. IV contrast was administered without complication. A dose lowering technique was utilized adhering to the principles of ALARA. CT DOSE: 302.46 mGy.cm FINDINGS: Lung bases: The heart is top normal in size and without pericardial effusion. The lung bases are clear noting dependent atelectasis. There is a small hiatal hernia. Fluid is noted in the distal esophagus. Liver: The contrast-enhanced liver is normal in size, contour, and attenuation. Fatty infiltration is noted adjacent to falciform ligament. There is no intrahepatic biliary ductal dilatation. The hepatic veins and portal veins are patent. Gallbladder: Unremarkable. Spleen: Normal in size and attenuation. Pancreas: The pancreas is normal as visualized. The gland enhances homogeneously. No peripancreatic stranding or fluid is identified. Adrenal glands: Unremarkable. Kidneys: The contrast enhanced kidneys are normal in size and without hydronephrosis. The kidneys enhance symmetrically. A subcentimeter cortical hypodensity in the right kidney likely represents a cyst but is too small for definitive characterization. Abdominal vasculature: The abdominal aorta is normal in course and caliber. Bowel: There are postoperative changes from right ileocecal resection with ileocolic anastomosis. No bowel obstruction is seen. Fecal retention is noted in the right colon. Peritoneum: There is no intraperitoneal free air or abdominal ascites. There is a small fat-containing umbilical hernia. Lymphadenopathy: None. Pelvic viscera: Nonspecific bladder wall thickening suggested. The prostate and seminal vesicles are normal as imaged. Skeletal structures: No lytic or blastic lesions are seen. Sclerotic change is noted in the sacroiliac joints. IMPRESSION: 1. There are postoperative changes from ileocecal resection with ileocolic anastomosis. No bowel obstruction is seen. There is no convincing CT evidence of active Crohn's disease. 2. There is no CT evidence of acute pancreatitis as clinically queried. 3. Nonspecific bladder wall thickening is identified. Correlation with clinical findings and urinalysis will be required. 4. There is evidence of sacroiliitis. 5. Additional findings as above. Electronically signed by: Brendan Knott M.D. 03/07/2017 8:00 AM Dictated Date/Time: 03/07/2017 7:55 AM
[2017-03-07 08:45] LABS: HEMATOCRIT 36.9 % (42-52); MEAN CELL VOLUME 87.9 fL (80-100); MEAN CORPUSCULAR HEMOGLOBIN 28.6 pg (25-34); MEAN CORPUSCULAR HGB CONC 32.5 g/dl (32-36); MEAN PLATELET VOLUME 13.3 fL (7.4-10.4); PLATELET COUNT 197 K/uL (130-400); RED CELL DISTRIBUTION WIDTH SD 48.1 fL (36.4-46.3); WHITE BLOOD COUNT 6.83 K/uL (4.8-10.8)
[2017-03-07 09:00] LABS: ALBUMIN 3.1 gm/dl (3.4-5.0); ALT/SGPT 24 U/L (12-78); AST/SGOT 23 U/L (15-37); BLOOD UREA NITROGEN 10 mg/dl (7-18); CALCIUM 7.7 mg/dl (8.5-10.1); CARBON DIOXIDE 24 mmol/L (21-32); CHOLESTEROL 148 mg/dl (0-200); CREATININE 0.97 mg/dl (0.60-1.40); GLUCOSE 83 mg/dl (70-99); LIPASE 601 U/L (73-393); POTASSIUM 4.3 mmol/L (3.5-5.1); SODIUM 142 mmol/L (136-145)
[2017-03-07 09:02] LABS: ALKALINE PHOSPHATASE 61 U/L (45-117); LDL CHOLESTEROL CALCULATED 56 mg/dl; TOTAL PROTEIN 6.2 gm/dl (6.4-8.2)
--- NOTE | 2017-03-07 10:02 | Gastrointestinal Consultation ---
Gastrointestinal Consultation Date of Consultation: Mar 07, 2017 Attending Physician: Carli Consulting Physician: Shaun Reason for Consultation: ? acute panc History of Present Illness Patient is a 36 year old male w/ crohn's disease s/p ileocecostomy currently on Humira and imuran who presented through ED w/ abdominal pain, nausea, vomiting, diarrhea x 3 days. Pt was seen and evaluated, chart reviewed. He notes he has been having abdominal pain, nausea, vomiting and diarrhea x 3 days. Before this , he noted some epigastric pain, worse with PO intake. Pt tells me he thought he was having a IBD flare so came to the ED. He notes lower abd pain, constant, unchanged w/ BM and some mild upper abdominal pain associated w/ nausea and vomiting. He notes over the past few nights he has been hanging out w/ friends, playing pool and drinking without any change in his symptoms. He last had ETOH yesterday, 4-5 drinks. He tells me he typically drinks ETOH a few times a week w / friends. + marijuana No other drugs. He notes he is moving his bowels 3-4 times daily. Semi-formed, no black or bloody stools. No fever, chills, CP, SOB. ETOH: yes Drugs: marijuana Medication changes: increased zoloft and buspar CT ABD/Pelvis 03/07/17: There are postoperative changes from ileocecal resection with ileocolic anastomosis. No bowel obstruction is seen. There is no convincing CT evidence of active Crohn's disease.There is no CT evidence of acute pancreatitis as clinically queried. Nonspecific bladder wall thickening is identified. Correlation with clinical findings and urinalysis will be required. There is evidence of sacroiliitis. KUB 03/06/17: No active disease in the chest.Non obstructed abdominal bowel gas pattern. Prominent loops of gas-filled small bowel in the right lower quadrant are of indeterminant significance. Colonoscopy 10/2016: The perianal and digital rectal examinations were normal.There was an unremarkable ileocolonic anastamosis in the right colon. Hemorrhoids on retroflexion. The colon was otherwise normal. The ileum was deeply intubated - approximately 40 cm of ileum was examined. The ileum was normal. There was no evidence of active Crohn's.Random biopsies taken from ileum and from colon. EGD 01/2015: LA grade A reflux esophagitis Colonoscopy 01/2015: patent anastomosis w ulceration Past Medical/Surgical History Medical Problems: (1) Abdominal cramping Status: Acute (2) Acute gastroenteritis Status: Acute (3) Anemia Status: Acute (4) Contusion of left knee Status: Acute (5) Crohn's disease Status: Acute (6) Crohns disease Status: Chronic (7) Crohns disease Status: Chronic (8) Dehydration Status: Acute (9) Diarrhea Status: Acute (10) Exacerbation of Crohn's disease Status: Acute (11) GERD (gastroesophageal reflux disease) Status: Chronic (12) Lumbago Status: Chronic (13) Nausea vomiting and diarrhea Status: Acute (14) Pancreatitis Status: Acute (15) Thoracic back pain Status: Acute Past Medical History: GERD, Sacroilitis, crohn's, lumbago Past Surgical History: colonoscopy, EGD Family History Diabetes mellitus FH: heart disease FHx: cancer Social History Smoking Status: Never Smoker Alcohol Use: occasionally Drug Use: marijuana Marital Status: single Housing Status: lives with family Occupation Status: unemployed Allergies Coded Allergies: Acetaminophen (Verified Allergy, Intermediate, HIVES, 03/07/17) NSAIDs (Verified Allergy, Unknown, contraindicated hx bleeding ulcers, ) Infliximab (Verified Adverse Reaction, Severe, NAUSEA, EMESIS, FLUSHING, HIVES, HYPERTENSION, PALLOR, 03/07/17) PT RECEIVING 3RD DOSE OF REMICADE (1ST AT [facility]) AND DEVELOPED THE FOLLOWING SYMPTOMS 13 MINUTES INTO MEDICATION: NAUSE, EMESIS, FLUSHING, HIVES ON FACE, BACK, ABDOMEN, CHEST, AND BELOW RIGHT EYE; HYPERTENSION, PALLOR. DENIES ANY DIFFICULTY SWALLOWING OR BREATHING/NO SOB. MEDICATION STOPPED IMMEDIATELY WITH NSS UP AT 125 CC/HR. Current Medications Home Meds and Scripts Medications Dose Route/Sig Max Daily Dose Days Date Category Zoloft (Sertraline HCl) 25 Mg Tab 50 Mg PO DAILY 11/05/16 Reported Bentyl (Dicyclomine Hcl) 20 Mg Tab 20 Mg PO DAILY PRN 11/05/16 Reported Oxycodone Hcl 10 Mg Tab 1 Tab PO TID PRN 30 11/05/16 Reported Prilosec (Omeprazole) 20 Mg Capcr 20 Mg PO BID 08/18/16 Reported Robaxin (Methocarbamol) 500 Mg Tab 500 Mg PO TID PRN 08/18/16 Reported Humira Pen (Adalimumab) 40 Mg/0.8 Ml Kit 40 Mg SQ Q2 WEEKS 11/22/14 Reported Review of Systems Constitutional: No fever, No chills Respiratory: No cough, No shortness of breath Cardiac: No chest pain, No edema Abdomen: + pain, + nausea, + vomiting, + diarrhea, No constipation, No GI bleeding Physical Exam Date Time Temp Pulse Resp B/P (MAP) Pulse Ox O2 Delivery O2 Flow Rate FiO2 03/07/17 08:45 Room Air 03/07/17 07:31 36.8 57 18 112/71 (85) 99 Room Air 03/07/17 02:19 36.4 60 20 131/92 99 Room Air 03/07/17 01:44 63 16 107/70 95 Room Air 03/07/17 00:13 68 16 125/87 98 Room Air 03/06/17 22:45 36.3 88 20 151/98 95 Room Air General Appearance: no apparent distress Eyes: PERRL ENT: hearing grossly normal Neck: supple Respiratory/Chest: lungs clear, normal breath sounds, no respiratory distress, no accessory muscle use Cardiovascular: regular rate, rhythm, no JVD Abdomen: normal bowel sounds, soft, no pulsatile mass, + tenderness (bilateral lower quadrants) Neurologic/Psych: alert, normal mood/affect, oriented x 3 Skin: normal color Laboratory Results Last 24 Hours Test 03/06/17 23:35 03/07/17 06:21 White Blood Count 9.16 K/uL 6.83 K/uL Red Blood Count 4.45 M/uL 4.20 M/uL Hemoglobin 12.9 g/dL 12.0 g/dL Hematocrit 38.9 % 36.9 % Mean Corpuscular Volume 87.4 fL 87.9 fL Mean Corpuscular Hemoglobin 29.0 pg 28.6 pg Mean Corpuscular Hemoglobin Concent 33.2 g/dl 32.5 g/dl Platelet Count 219 K/uL 197 K/uL Mean Platelet Volume 13.1 fL 13.3 fL Neutrophils (%) (Auto) 50.0 % Lymphocytes (%) (Auto) 35.9 % Monocytes (%) (Auto) 7.3 % Eosinophils (%) (Auto) 5.6 % Basophils (%) (Auto) 0.5 % Neutrophils # (Auto) 4.58 K/uL Lymphocytes # (Auto) 3.29 K/uL Monocytes # (Auto) 0.67 K/uL Eosinophils # (Auto) 0.51 K/uL Basophils # (Auto) 0.05 K/uL RDW Standard Deviation 47.3 fL 48.1 fL RDW Coefficient of Variation 14.8 % 15.0 % Immature Granulocyte % (Auto) 0.7 % Immature Granulocyte # (Auto) 0.06 K/uL Urine Color YELLOW Urine Appearance CLEAR Urine pH 5.5 Urine Specific [place] 1.009 Urine Protein NEG Urine Glucose (UA) NEG Urine Ketones NEG Urine Occult Blood NEG Urine Nitrite NEG Urine Bilirubin NEG Urine Urobilinogen NEG Urine Leukocyte Esterase NEG Urine WBC (Auto) /hpf Urine RBC (Auto) /hpf Urine Hyaline Casts (Auto) /lpf Urine Epithelial Cells (Auto) /lpf Urine Bacteria (Auto) Urine RBC 0-4 /hpf Urine WBC 0 /hpf Urine Epithelial Cells 0-5 /lpf Urine Bacteria NEG Sodium Level 138 mmol/L 142 mmol/L Potassium Level 3.3 mmol/L 4.3 mmol/L Chloride Level 108 mmol/L 113 mmol/L Carbon Dioxide Level 24 mmol/L 24 mmol/L Anion Gap 6.0 mmol/L 5.0 mmol/L Blood Urea Nitrogen 11 mg/dl 10 mg/dl Creatinine 1.06 mg/dl 0.97 mg/dl Est Creatinine Clear Calc Drug Dose 97.3 ml/min 106.3 ml/min Estimated GFR () 104.9 116.7 Estimated GFR (Non- 90.5 100.7 BUN/Creatinine Ratio 10.1 10.6 Random Glucose 94 mg/dl 83 mg/dl Calcium Level 8.3 mg/dl 7.7 mg/dl Total Bilirubin 0.2 mg/dl 0.4 mg/dl Direct Bilirubin < 0.1 mg/dl < 0.1 mg/dl Aspartate Amino Transf (AST/SGOT) 25 U/L 23 U/L Alanine Aminotransferase (ALT/SGPT) 30 U/L 24 U/L Alkaline Phosphatase 76 U/L 61 U/L C-Reactive Protein < 0.29 mg/dl Total Protein 7.6 gm/dl 6.2 gm/dl Albumin 3.8 gm/dl 3.1 gm/dl Lipase 2644 U/L 601 U/L Prothrombin Time 11.0 SECONDS Prothromb Time International Ratio 1.0 Triglycerides Level 147 mg/dl Cholesterol Level 148 mg/dl HDL Cholesterol 63 mg/dl LDL Cholesterol, Calculated 56 mg/dl VLDL Cholesterol, Calculated 29 mg/dl Cholesterol/HDL Ratio 2.3 Impression Patient is a 36 year old male w/ Crohn's on humira with recent increase in his zoloft and buspar who presented through the ED following a week of epigastric pain w/ PO intake and then three days of abdominal pain, nausea, vomiting and diarrhea. CT imaging overall benign w/o evidence of obstruction, pancreatitis. VSS, no evidence of leukocytosis, kidney function WNL, LFTs non-elevated w/ lipase 2700. On exam, he has generalized tenderness without guarding or rebound , worse in bilateral lower quadrants. He tells me his morphine is not working and needs something stronger for the pain. Plan - Consider a toxicology screen - Treat the pancreatitis - NPO - IVF LR 200 ml/hr - Analgesia PRN - Antiemetics PRN - RUQ US to rule out gallstones - Outpatient EUS w/ Dr. Metzger - Diarrhea - stool for c.diff - stool culture - Crohn's - continue Humira GI will follow. Please call with any questions or concerns I saw and evaluated the patient with Ms. Barone. The patient presented last evening with abdominal discomfort and was found to have evidence of pancreatitis. He does have a history of Crohn's disease and is followed by my partner Dr. Metzger as an OP. Upon review of the medical history and discussed with the patient it does appear that he does drink a significant amount of alcohol on a daily basis. Physical examination No obvious distress, minimal abdominal tenderness noted Impression: Patient presents with acute mild pancreatitis seems to be improving with use of IV hydration. I suspect that the patient's etiology of pancreatitis is from alcohol use. We would encourage that he discontinue alcohol consumption. Recommendations Continue with IV hydration Clear liquid diet today Advance diet as tolerated on Friday doing well Outpatient endoscopic ultrasound in 6-8 weeks with his regular GI provider Dr. Yassine Dunn
[2017-03-07] MEDS: FAMOTIDINE IV INJ 20 MG in SYRINGE 3 ML IV SCH (11:40)
--- NOTE | 2017-03-07 14:29 | DIAGNOSTIC IMAGING REPORT ---
ABDOMINAL ULTRASOUND, RIGHT UPPER QUADRANT HISTORY: Pancreatitis. Evaluate for gallstones. COMPARISON: Right upper quadrant ultrasound May 09, [address] of the abdomen and pelvis performed earlier today. FINDINGS: Exam is compromised by suboptimal penetration. Liver is unremarkable by sonography. No gallstones are identified. There is no gallbladder wall thickening. There is no biliary ductal dilatation. The pancreas is obscured by overlying bowel gas. There is no right hydronephrosis IMPRESSION: 1. No gallstones or biliary ductal dilatation. Study mildly compromised due to suboptimal penetration. 2. Obscured pancreas due to overlying bowel gas. Electronically signed by: Stanford Ramos M.D. 03/07/2017 2:27 PM Dictated Date/Time: 03/07/2017 2:20 PM
[2017-03-07] MEDS: LACTATED RINGER'S 1000ML 1,000 ML IV SCH ×2 (14:53→19:56)
[2017-03-07] MEDS: HYDROmorphone INJ 0.5 MG/0.5 ML SYR IV PRN ×2 (15:49→19:49)
[2017-03-07 15:59] VITALS: BP 142/85; PULSE 56; TEMP 36.6; O2SAT 98
--- NOTE | 2017-03-07 18:48 | Progress Note ---
Medicine Progress Note Date & Time of Visit: Mar 07, 2017 at 18:44. Subjective Patient states his pain is not controlled with morphine. No overnight events noted. No BM since admission. Still has some nausea. Complains of dry mouth and requests ice chips. No other complaints at this time. Objective Last 8 Hrs Date Time Temp Pulse Resp B/P (MAP) Pulse Ox O2 Delivery O2 Flow Rate FiO2 03/07/17 16:30 Room Air 03/07/17 15:59 36.6 56 18 142/85 (104) 98 Room Air Physical Exam: GENERAL: Patient is in no acute distress. HEENT: No acute trauma, normocephalic atraumatic, mucous membranes moist, no nasal congestion, no scleral icterus. NECK: No stridor, trachea is midline. LUNGS: Clear to auscultation bilaterally, no wheeze, no rhonchi, breath sounds equal. HEART: Without murmurs gallops or rubs, regular rate and rhythm. ABDOMEN: Soft, bowel sounds positive, pain with auscultation of abdomen, grimace and voluntary guarding with palpation of entire abdomen EXTREMITIES: No cyanosis or edema, full range of motion of all the joints without pain or difficulty, no signs for acute trauma. NEUROLOGIC: Oriented x 3, no acute motor or sensory deficits, no focal weakness. SKIN: No rash, no jaundice, no diaphoresis. Laboratory Results: Last 24 Hours Test 03/06/17 23:35 03/07/17 06:21 White Blood Count 9.16 K/uL 6.83 K/uL Red Blood Count 4.45 M/uL 4.20 M/uL Hemoglobin 12.9 g/dL 12.0 g/dL Hematocrit 38.9 % 36.9 % Mean Corpuscular Volume 87.4 fL 87.9 fL Mean Corpuscular Hemoglobin 29.0 pg 28.6 pg Mean Corpuscular Hemoglobin Concent 33.2 g/dl 32.5 g/dl Platelet Count 219 K/uL 197 K/uL Mean Platelet Volume 13.1 fL 13.3 fL Neutrophils (%) (Auto) 50.0 % Lymphocytes (%) (Auto) 35.9 % Monocytes (%) (Auto) 7.3 % Eosinophils (%) (Auto) 5.6 % Basophils (%) (Auto) 0.5 % Neutrophils # (Auto) 4.58 K/uL Lymphocytes # (Auto) 3.29 K/uL Monocytes # (Auto) 0.67 K/uL Eosinophils # (Auto) 0.51 K/uL Basophils # (Auto) 0.05 K/uL RDW Standard Deviation 47.3 fL 48.1 fL RDW Coefficient of Variation 14.8 % 15.0 % Immature Granulocyte % (Auto) 0.7 % Immature Granulocyte # (Auto) 0.06 K/uL Urine Color YELLOW Urine Appearance CLEAR Urine pH 5.5 Urine Specific [place] 1.009 Urine Protein NEG Urine Glucose (UA) NEG Urine Ketones NEG Urine Occult Blood NEG Urine Nitrite NEG Urine Bilirubin NEG Urine Urobilinogen NEG Urine Leukocyte Esterase NEG Urine WBC (Auto) /hpf Urine RBC (Auto) /hpf Urine Hyaline Casts (Auto) /lpf Urine Epithelial Cells (Auto) /lpf Urine Bacteria (Auto) Urine RBC 0-4 /hpf Urine WBC 0 /hpf Urine Epithelial Cells 0-5 /lpf Urine Bacteria NEG Sodium Level 138 mmol/L 142 mmol/L Potassium Level 3.3 mmol/L 4.3 mmol/L Chloride Level 108 mmol/L 113 mmol/L Carbon Dioxide Level 24 mmol/L 24 mmol/L Anion Gap 6.0 mmol/L 5.0 mmol/L Blood Urea Nitrogen 11 mg/dl 10 mg/dl Creatinine 1.06 mg/dl 0.97 mg/dl Est Creatinine Clear Calc Drug Dose 97.3 ml/min 106.3 ml/min Estimated GFR () 104.9 116.7 Estimated GFR (Non- 90.5 100.7 BUN/Creatinine Ratio 10.1 10.6 Random Glucose 94 mg/dl 83 mg/dl Calcium Level 8.3 mg/dl 7.7 mg/dl Total Bilirubin 0.2 mg/dl 0.4 mg/dl Direct Bilirubin < 0.1 mg/dl < 0.1 mg/dl Aspartate Amino Transf (AST/SGOT) 25 U/L 23 U/L Alanine Aminotransferase (ALT/SGPT) 30 U/L 24 U/L Alkaline Phosphatase 76 U/L 61 U/L C-Reactive Protein < 0.29 mg/dl Total Protein 7.6 gm/dl 6.2 gm/dl Albumin 3.8 gm/dl 3.1 gm/dl Lipase 2644 U/L 601 U/L Prothrombin Time 11.0 SECONDS Prothromb Time International Ratio 1.0 Triglycerides Level 147 mg/dl Cholesterol Level 148 mg/dl HDL Cholesterol 63 mg/dl LDL Cholesterol, Calculated 56 mg/dl VLDL Cholesterol, Calculated 29 mg/dl Cholesterol/HDL Ratio 2.3 Assessment & Plan ACUTE PANCREATITIS: -RUQ US negative for gallstones -triglycerides 147 -patient denies alcohol use prior to symptoms, states he drank the day before admission but his symptoms began several days before that -PRN pain control and anti-emetics -GI consulted -IV fluids continued -will keep NPO until pain has improved CROHN'S DISEASE: -doubt exacerbation -continue Humira as an outpatient as per GI GERD: -on IV famotidine twice daily. ANXIETY/DEPRESSION: -holding Zoloft for now, but will be started when taking PO Current Inpatient Medications: Current Inpatient Medications Medications (Trade) Dose Ordered Sig/Petar Route Start Time Stop Time Status Last Admin Dose Admin Ioversol (Optiray 320) 100 ml UD PRN IV 03/07/17 00:30 03/11/17 00:29 Enoxaparin Sodium (Lovenox Inj) 40 mg Q24H SQ 03/07/17 09:00 04/06/17 08:59 03/07/17 07:58 40 MG Ondansetron HCl (Zofran Inj) 4 mg Q6H PRN IV 03/07/17 01:00 04/06/17 00:59 Famotidine 20 mg/ Syringe 5 ml @ 2.5 mls/min Q12H IV 03/07/17 12:00 04/06/17 11:59 03/07/17 11:40 2.5 MLS/MIN Lactated Ringer's 1,000 ml @ 200 mls/hr Q5H IV 03/07/17 13:45 04/06/17 13:44 03/07/17 14:53 200 MLS/HR Hydromorphone HCl (Dilaudid Inj) 0.5 mg Q4 PRN IV 03/07/17 15:00 03/21/17 14:59 03/07/17 15:49 0.5 MG
[2017-03-07] MEDS ORDERED: SERTRALINE HCL 50 MG TAB PO ONE (20:15)
[2017-03-08] VITALS (10 sets, daily range): BP systolic 131–152; BP diastolic 61–94; PULSE 48–61; TEMP 33.6–37; O2SAT 98–100; Ht 175.3 cm; Wt 72.1 kg
[2017-03-08] MEDS ORDERED: NURSING VERBAL MED ORDER ONE (00:30)
[2017-03-08] MEDS: FAMOTIDINE IV INJ 20 MG in SYRINGE 3 ML IV SCH ×3 (00:53→23:53)
[2017-03-08] MEDS ORDERED: SODIUM CHLORIDE 0.9% 500ML 500 ML IV STA (00:53)
[2017-03-08] MEDS: LACTATED RINGER'S 1000ML 1,000 ML IV SCH ×6 (00:53→23:53)
[2017-03-08] MEDS: HYDROmorphone INJ 0.5 MG/0.5 ML SYR IV PRN ×5 (04:41→22:22)
[2017-03-08 07:14] LABS: HEMATOCRIT 38.4 % (42-52); HEMOGLOBIN 12.5 g/dL (14.0-18.0); MEAN CELL VOLUME 88.9 fL (80-100); MEAN CORPUSCULAR HEMOGLOBIN 28.9 pg (25-34); MEAN CORPUSCULAR HGB CONC 32.6 g/dl (32-36); MEAN PLATELET VOLUME 13.3 fL (7.4-10.4); PLATELET COUNT 201 K/uL (130-400); RED CELL DISTRIBUTION WIDTH SD 48.8 fL (36.4-46.3); WHITE BLOOD COUNT 9.44 K/uL (4.8-10.8)
[2017-03-08 07:41] LABS: CALCIUM 8.2 mg/dl (8.5-10.1); CREATININE 0.98 mg/dl (0.60-1.40)
[2017-03-08] MEDS: ENOXAPARIN 40 MG/0.4 ML SYR SQ SCH (09:42)
[2017-03-08] MEDS: SERTRALINE HCL 50 MG TAB PO SCH (09:42)
--- NOTE | 2017-03-08 12:06 | Progress Note ---
Progress Note Date of Service Mar 08, 2017. Progress Note Continued mild abd pain. Bishop clears, but reluctant to adv diet. Passing flatus. Date Time Temp Pulse Resp B/P (MAP) Pulse Ox O2 Delivery O2 Flow Rate FiO2 03/08/17 07:33 36.7 51 20 152/94 (113) 98 Room Air 03/08/17 07:15 Room Air 03/08/17 04:36 36.3 61 18 131/73 (92) 100 Room Air 03/08/17 04:13 36.3 57 03/08/17 02:25 34.4 52 03/08/17 00:50 34.5 48 03/08/17 00:15 33.6 03/08/17 00:02 56 19 132/61 (84) 99 Room Air 03/08/17 00:00 Room Air 03/07/17 20:00 Room Air 03/07/17 16:30 Room Air 03/07/17 15:59 36.6 56 18 142/85 (104) 98 Room Air Appears mildly uncomfortable Abd soft, mildly tender Labs reviewed A/P: Pancreatitis - Cont IVF's, diet as tolerated. Analgesia as needed, but pancreatitis but imaging and clinical criteria appears mild -- would monitor for evidence of narc abuse. Please call with questions over weekend.
--- NOTE | 2017-03-08 18:19 | Progress Note ---
Medicine Progress Note Date & Time of Visit: Mar 08, 2017 at 18:19. Subjective Patient reports having some ongoing pain but not nearly as severe as before, is still requiring IV dilaudid. Has been tolerating clear liquids without difficulty but is reluctant to try anything else. Overnight events noted, patient was diaphoretic, bradycardic, and hypothermic but the cause of the event is unknown. BSG was normal. A urine tox was ordered yesterday and still has not been completed. Objective Last 8 Hrs Date Time Temp Pulse Resp B/P (MAP) Pulse Ox O2 Delivery O2 Flow Rate FiO2 03/08/17 16:00 99 Room Air 03/08/17 15:15 36.8 57 18 151/86 (107) 99 Room Air Physical Exam: GENERAL: Patient is in no acute distress. HEENT: No acute trauma, normocephalic atraumatic, mucous membranes moist, no nasal congestion, no scleral icterus. NECK: No stridor, trachea is midline. LUNGS: Clear to auscultation bilaterally, no wheeze, no rhonchi, breath sounds equal. HEART: Without murmurs gallops or rubs, regular rate and rhythm. ABDOMEN: Soft, bowel sounds positive, ND, grimace and voluntary guarding with palpation of B/L upper quadrants abdomen EXTREMITIES: No cyanosis or edema, full range of motion of all the joints without pain or difficulty, no signs for acute trauma. NEUROLOGIC: Oriented x 3, no acute motor or sensory deficits, no focal weakness. SKIN: No rash, no jaundice, no diaphoresis. Laboratory Results: Last 24 Hours Test 03/07/17 22:00 03/07/17 23:41 03/08/17 06:51 Bedside Glucose 89 mg/dl White Blood Count 9.44 K/uL Red Blood Count 4.32 M/uL Hemoglobin 12.5 g/dL Hematocrit 38.4 % Mean Corpuscular Volume 88.9 fL Mean Corpuscular Hemoglobin 28.9 pg Mean Corpuscular Hemoglobin Concent 32.6 g/dl RDW Standard Deviation 48.8 fL RDW Coefficient of Variation 15.0 % Platelet Count 201 K/uL Mean Platelet Volume 13.3 fL Sodium Level 141 mmol/L Potassium Level 4.0 mmol/L Chloride Level 108 mmol/L Carbon Dioxide Level 29 mmol/L Anion Gap 4.0 mmol/L Blood Urea Nitrogen 7 mg/dl Creatinine 0.98 mg/dl Est Creatinine Clear Calc Drug Dose 105.3 ml/min Estimated GFR () 115.3 Estimated GFR (Non- 99.5 BUN/Creatinine Ratio 6.9 Random Glucose 92 mg/dl Calcium Level 8.2 mg/dl Assessment & Plan ACUTE PANCREATITIS: -RUQ US negative for gallstones -triglycerides 147 -patient denies alcohol use prior to symptoms, states he drank the day before admission but his symptoms began several days before that -PRN pain control and anti-emetics -GI consulted, diet advanced to clears -IV fluids continued, can decrease now that PO intake improved CROHN'S DISEASE: -doubt exacerbation -continue Humira as an outpatient as per GI GERD: -on IV famotidine twice daily. ANXIETY/DEPRESSION: -holding Zoloft for now, but will be started when taking PO Current Inpatient Medications: Current Inpatient Medications Medications (Trade) Dose Ordered Sig/Petar Route Start Time Stop Time Status Last Admin Dose Admin Ioversol (Optiray 320) 100 ml UD PRN IV 03/07/17 00:30 03/11/17 00:29 Enoxaparin Sodium (Lovenox Inj) 40 mg Q24H SQ 03/07/17 09:00 04/06/17 08:59 03/08/17 09:42 40 MG Ondansetron HCl (Zofran Inj) 4 mg Q6H PRN IV 03/07/17 01:00 04/06/17 00:59 Famotidine 20 mg/ Syringe 5 ml @ 2.5 mls/min Q12H IV 03/07/17 12:00 04/06/17 11:59 03/08/17 12:03 2.5 MLS/MIN Lactated Ringer's 1,000 ml @ 200 mls/hr Q5H IV 03/07/17 13:45 04/06/17 13:44 03/08/17 14:45 200 MLS/HR Hydromorphone HCl (Dilaudid Inj) 0.5 mg Q4 PRN IV 03/07/17 15:00 03/21/17 14:59 03/08/17 18:16 0.5 MG Sertraline HCl (Zoloft Tab) 50 mg DAILY PO 03/08/17 09:00 04/07/17 08:59 03/08/17 09:42 50 MG
[2017-03-09] MEDS: HYDROmorphone INJ 0.5 MG/0.5 ML SYR IV PRN ×3 (05:31→14:50)
[2017-03-09] MEDS: LACTATED RINGER'S 1000ML 1,000 ML IV SCH ×3 (05:31→14:51)
[2017-03-09 07:49] VITALS: BP 162/92; PULSE 49; TEMP 36.8; O2SAT 97
[2017-03-09 08:06] LABS: HEMATOCRIT 40.6 % (42-52); HEMOGLOBIN 13.3 g/dL (14.0-18.0); MEAN CELL VOLUME 88.3 fL (80-100); MEAN CORPUSCULAR HEMOGLOBIN 28.9 pg (25-34); MEAN CORPUSCULAR HGB CONC 32.8 g/dl (32-36); MEAN PLATELET VOLUME 12.9 fL (7.4-10.4); PLATELET COUNT 190 K/uL (130-400); RED CELL DISTRIBUTION WIDTH CV 14.8 % (11.5-14.5); RED CELL DISTRIBUTION WIDTH SD 47.5 fL (36.4-46.3); WHITE BLOOD COUNT 7.25 K/uL (4.8-10.8)
[2017-03-09] MEDS: ENOXAPARIN 40 MG/0.4 ML SYR SQ SCH (08:16)
[2017-03-09] MEDS: SERTRALINE HCL 50 MG TAB PO SCH (08:16)
[2017-03-09 08:34] LABS: CALCIUM 8.7 mg/dl (8.5-10.1); CREATININE 1.21 mg/dl (0.60-1.40); POTASSIUM 3.7 mmol/L (3.5-5.1)
[2017-03-09] MEDS: FAMOTIDINE IV INJ 20 MG in SYRINGE 3 ML IV SCH (12:05)
[2017-03-09] MEDS ORDERED: NURSING VERBAL MED ORDER ONE (15:00)
[2017-03-09 15:12] VITALS: BP 162/92; PULSE 49; TEMP 36.8; O2SAT 97
[2017-03-09 15:28] VITALS: BP 162/96; PULSE 53; TEMP 37; O2SAT 97
--- NOTE | 2017-03-09 18:08 | Discharge Instructions ---
Discharge Instructions Date of Service Mar 09, 2017. Admission Reason for Admission: Acute Pancreatitis, Crohn Disease Discharge Discharge Diagnosis / Problem: Pancreatitis Discharge Goals Goal(s): Therapeutic intervention Activity Recommendations Activity Limitations: as noted below Lifting Limitations: gradually increase as tolerated Exercise/Sports Limitations: gradually increase as tolerated Please avoid any alcohol as this may exacerbate your condition. . Instructions / Follow-Up Instructions / Follow-Up Please see Dr. Smith on March 13 at 11:05AM for hospital follow up Please follow up with GI as scheduled. Current Hospital Diet Patient's current hospital diet: Regular Diet, Low Fat Diet Discharge Diet Recommended Diet: Low Fat Diet (until pain has completely resolved) Pending Studies Studies pending at discharge: no Laboratory Results Lipid Panel Test 03/07/17 06:21 Range/Units Triglycerides Level 147 0-150 mg/dl Cholesterol Level 148 0-200 mg/dl HDL Cholesterol 63 mg/dl Cholesterol/HDL Ratio 2.3 LDL Cholesterol, Calculated 56 mg/dl Medical Emergencies . Who to Call and When: Medical Emergencies: If at any time you feel your situation is an emergency, please call 911 immediately. . Non-Emergent Contact Non-Emergency issues call your: Primary Care Provider, Fashion Design Professor . . "Provider Documentation" section prepared by Kathe Boyce. . VTE Core Measure Inpt VTE Proph given/why not?: Enoxaparin (Lovenox)SQ
--- NOTE | 2017-03-11 10:43 | Discharge Summary ---
Discharge Summary Date of Service Mar 11, 2017. Discharge Summary Admission Date: Mar 07, 2017 at 00:57 Discharge Date: Mar 09, 2017 Discharge Disposition: Home Principal Diagnosis: Mild acute pancreatitis Medication Reconciliation Continued Medications: Adalimumab (Humira Pen) 40 Mg/0.8 Ml Kit 40 MG SQ Q2 WEEKS Dicyclomine Hcl (Bentyl) 20 Mg Tab 20 MG PO DAILY PRN for abdominal cramping, TAB Methocarbamol (Robaxin) 500 Mg Tab 500 MG PO TID PRN for Muscle Spasms, TAB Omeprazole (Prilosec) 20 Mg Capcr 20 MG PO BID, CAP Oxycodone Hcl (Oxycodone Hcl) 10 Mg Tab 1 TAB PO TID PRN for Pain for 30 Days, #90 TAB Sertraline (Zoloft) 25 Mg Tab 50 MG PO DAILY, TAB Admission Information HPI (per Admitting provider): CHIEF COMPLAINT: Nausea, vomiting, diarrhea over the last 2-3 days. HISTORY OF PRESENT COMPLAINT: He is a 36-year-old male with a significant past medical history of Crohn's disease and GERD. Apparently, he has been complaining of nausea, vomiting with diarrhea for the last 2 days. Apparently, he has had diarrhea about 4 or 5 times for the last 1 week, but the condition got worse for the last 2 days with abdominal pain and some shakes at times. He has not been able to eat anything or drink anything for the last day or two. He does not have any bleeding per rectum and he denies having any fever, chills or rigors. He does not have any cough or any shortness of breath, does not have any swelling of the legs as well. He is a social drinker and recently there is no increase of his alcohol intake. He takes usually 4-5 drinks whenever he drinks for a day. His last drink was yesterday. In the Emergency Room, he was still having pain with some abdominal distension, but no nausea and an apparent investigation showed that his lipase is elevated and consistent with an acute pancreatitis. From that point, he was admitted to medical floor. PAST MEDICAL HISTORY: Significant for Crohn's disease and GERD. PAST SURGICAL HISTORY: Laparoscopic partial colectomy in 2015 and sacroiliac joint injection in the past and he has had quite a few colonoscopies for Crohn's disease. FAMILY HISTORY: Brother has arthritis. Sister has arthritis in the lumbar region. Mother has diabetes and high blood pressure. Father has stomach cancer. SOCIAL HISTORY: He is single. He quit smoking in 2011 and he drinks alcohol about 4-6 drinks a day whenever he drinks. He uses marijuana as per the chart, but 3-4 times per day. ALLERGIES: ACETAMINOPHEN, INFLIXIMAB, AND NSAIDS. MEDICATIONS: As an outpatient, he has been on Humira 2 times a month, Bentyl 20 mg as needed, Robaxin 500 mg 3 times daily for muscle spasm, Zoloft 50 mg daily, omeprazole 20 mg twice daily, and oxycodone 1 tablet t.i.d. p.r.n. REVIEW OF SYSTEMS: Other systems review unremarkable except for those mentioned in history of present complaint. PHYSICAL EXAMINATION: GENERAL: On examination in the Emergency Room, he is still having abdominal pain, but no nausea. VITAL SIGNS: Temperature 36.3, pulse was 68, blood pressure 125/87, saturation 98% on room air. HEENT: Unremarkable. NECK: Supple. No JVD, no bruit. CHEST: Clear to auscultate bilaterally. HEART: S1, S2 regular. No murmur. ABDOMEN: Slightly distended, soft. Tender mostly in the epigastrium. No rebound tenderness. Bowel sounds present. RECTAL: Deferred. EXTREMITIES: No edema. MUSCULOSKELETAL SYSTEM: Did not show any acute arthritis involving any joint. CENTRAL NERVOUS SYSTEM: He was alert, awake, oriented x3. No focal sensory and/or motor deficit appreciated. Hospital Course ACUTE PANCREATITIS: -RUQ US negative for gallstones -triglycerides 147 -patient denies alcohol use prior to symptoms, states he drank the day before admission but his symptoms began several days before that -PRN pain control and anti-emetics -GI consulted -IV fluids continued, can decrease now that PO intake improved -tolerating regular food today with minimal pain -has been moving bowels CROHN'S DISEASE: -doubt exacerbation -continue Humira as an outpatient as per GI GERD: -on IV famotidine twice daily. ANXIETY/DEPRESSION: -holding Zoloft for now, but will be started when taking PO PHYSICAL EXAM ON DAY OF DISCHARGE: GENERAL: Patient is in no acute distress. HEENT: No acute trauma, normocephalic, mucous membranes moist, no nasal congestion, no scleral icterus, conjunctivae clear. NECK: No stridor, no adenopathy, no meningismus, trachea is midline. LUNGS: Clear to auscultation bilaterally, no wheeze, no rhonchi, breath sounds equal. HEART: Without murmurs gallops or rubs, regular rate and rhythm. ABDOMEN: Soft, nontender, bowel sounds positive, no hepatosplenomegaly EXTREMITIES: No cyanosis or edema, full range of motion of all the joints without pain or difficulty, no signs for acute trauma. NEUROLOGIC: Oriented x 3, no acute motor or sensory deficits, no focal weakness. SKIN: No rash, no jaundice, no diaphoresis. Total time spent on discharge = 37 This includes examination of the patient, discharge planning, medication reconciliation, and communication with other providers. Discharge Instructions see patient instructions
== END 2017-03-09 18:47 | disposition home or self-care (01) | DRG 439 ==
LOC: C.EDB 22:38 → C.MS2W 03-07 00:57 → ENRESERV 03-07 01:28
PROVIDERS: ADMIT Internal Medicine; ATTEND Internal Medicine
DX: K85.90 Acute pancreatitis without necrosis or infection, unspecified (principal); K50.90 Crohn's disease, unspecified, without complications; K21.9 Gastro-esophageal reflux disease without esophagitis; F32.9 Major depressive disorder, single episode, unspecified; F41.9 Anxiety disorder, unspecified; Z51.81 Encounter for therapeutic drug level monitoring; Z79.899 Other long term (current) drug therapy; Z87.891 Personal history of nicotine dependence; Z83.3 Family history of diabetes mellitus; Z80.0 Family history of malignant neoplasm of digestive organs; Z82.49 Family history of ischemic heart disease and other diseases of the circulatory system; Z82.61 Family history of arthritis

== ENCOUNTER → 2017-05-22 | Outpatient (CLI) | payer OTHER | END | disposition home or self-care (01) | LOC: C.LAB 21:49 | DX: Z02.83 Encounter for blood-alcohol and blood-drug test (principal) ==

== ENCOUNTER 2017-06-17 14:36 | Emergency (ER) | payer OTHER ==
[~2017-06-17] VITALS: Ht 175.3 cm; Wt 72.8 kg
[2017-06-17 14:44] VITALS: TEMP 36.9; Ht 175.3 cm; Wt 72.8 kg
[2017-06-17] MEDS ORDERED: SODIUM CHLORIDE 0.9% 1000ML 1,000 ML IV STA ×2 (14:56→17:08)
[2017-06-17] MEDS ORDERED: ONDANSETRON INJ 2 MG/ML 2 ML VIAL IV STA (14:56)
[2017-06-17] MEDS ORDERED: OPTIRAY 320 IV PRN (15:00)
[2017-06-17] MEDS ORDERED: DICYCLOMINE HCL 10 MG/ML 2 ML AMP IM ONE (15:00)
[2017-06-17 15:20] LABS: BASO % 0.3 %; BASO ABS # 0.03 K/uL (0-0.2); EOS % 1.6 %; EOS ABS # 0.16 K/uL (0-0.5); HEMATOCRIT 42.1 % (42-52); HEMOGLOBIN 14.1 g/dL (14.0-18.0); IG# 0.05 K/uL (0.00-0.02); LYMPH % 25.1 %; LYMPH ABS # 2.53 K/uL (1.2-3.4); MEAN CELL VOLUME 88.3 fL (80-100); MEAN CORPUSCULAR HEMOGLOBIN 29.6 pg (25-34); MEAN CORPUSCULAR HGB CONC 33.5 g/dl (32-36); MEAN PLATELET VOLUME 13.1 fL (7.4-10.4); MONO % 7.3 %; MONO ABS # 0.74 K/uL (0.11-0.59); NEUT % 65.2 %; NEUT ABS # 6.58 K/uL (1.4-6.5); PLATELET COUNT 219 K/uL (130-400); RED CELL DISTRIBUTION WIDTH CV 14.6 % (11.5-14.5); RED CELL DISTRIBUTION WIDTH SD 47.4 fL (36.4-46.3); WHITE BLOOD COUNT 10.09 K/uL (4.8-10.8)
--- NOTE | 2017-06-17 15:40 | EMERGENCY ROOM VISIT NOTE ---
ED Visit Note First contact with patient: 14:47 CHIEF COMPLAINT: Abdominal cramping, diarrhea HISTORY OF PRESENTING ILLNESS: This is a 36-year-old male with past medical history significant for Crohn's disease, who presents to the emergency department today for severe abdominal cramping and diarrhea. Patient states that his diarrhea started about 1 week ago and has been off and on throughout the week. He states it has mostly been loose, occasionally watery, and has had 2 bowel movements with a small amount of bright red blood, which she states is not unusual for him. He states yesterday and today that his diarrhea increased and he has been having increasing abdominal cramping that got worse today. He has associated nausea, but no vomiting. He describes the cramps as sharp and stabbing at times, worse with bending over, constant, rates as 7/10. He took two 10 mg oxycodone tablets, which he has for chronic back pain, but states this did not help his pain. He does have a prescription for Bentyl to be taken as needed for stomach cramping, he did not take this at all. He denies any fevers or chills, chest pain, shortness of breath, dysuria or urinary frequency , or unusual rash. He states he has had a headache today which he attributes to dehydration and not being able to eat or drink much because of the nausea. He denies any neck pain or stiffness, vision changes, dizziness or syncope, numbness or weakness of the extremities. He reports a surgical history of a partial small bowel resection in 2015, and states they took his appendix as well. He is followed by Dr. Metzger with GI. REVIEW OF SYSTEMS: A complete 10 point review of systems was reviewed with the patient with pertinent positives and negatives as per history of present illness. All else were negative. PAST MEDICAL HISTORY: Reviewed in chart SOCIAL HISTORY: Lives at home. He is a current everyday smoker. He denies alcohol or recreational drug use. ALLERGIES: Reviewed in chart. PHYSICAL EXAM: CONSTITUTIONAL: Pleasant and cooperative. No acute distress, but he appears to be uncomfortable and in pain. Mildly dehydrated, but otherwise well appearing and well nourished. HEENT: Normocephalic, atraumatic. Pupils equal, round and reactive to light, EOMI. TMs normal. Pharynx normal. Tacky mucous membranes. NECK: Supple, full active range of motion without discomfort. RESPIRATORY: Clear to auscultation bilaterally with no wheezing, crackles, rhonchi or stridor. Equal expansion bilaterally. CARDIOVASCULAR: Regular rate and rhythm with no murmurs, rubs or gallops. Normal peripheral perfusion. No edema. GASTROINTESTINAL: Diffusely tender throughout to palpation, most tender in the right lower quadrant. Soft, nondistended. No palpable masses or HSM. Bowel sounds present in all quadrants. MUSCULOSKELETAL: Full range of motion of all joints without discomfort. INTEGUMENTARY: No rash or other significant dermatologic conditions noted. NEUROLOGIC: Alert and oriented X 4 with normal affect. Normal strength and sensation in all 4 extremities. No focal neurologic deficits noted. Normal speech. Normal gait observed. ED COURSE AND MEDICAL DECISION MAKING: CC: Patient presenting with complaint of abdominal cramping and diarrhea DIFFERENTIAL DIAGNOSIS: Includes, but not limited to gastroenteritis, gastritis , Crohn's flare, colitis, diverticulitis, intra-abdominal abscess, small bowel obstruction, bowel perforation, dehydration, pancreatitis, among others. INTERPRETATION OF LABS: No leukocytosis, no anemia, no significant electrolyte abnormalities, normal renal function, normal liver enzymes and lipase. UA negative. IMAGING: CT HEAD WITHOUT CONTRAST (CT) CLINICAL HISTORY: Sudden onset of severe headache COMPARISON STUDY: No previous studies for comparison. TECHNIQUE: Axial CT of the brain is performed from the vertex to the skull base. IV contrast was not administered for this examination. A dose lowering technique was utilized adhering to the principles of ALARA. CT DOSE: 614.27 mGy.cm FINDINGS: No intra or extra-axial mass lesions are visualized. There is no CT evidence of acute cortical infarction. There is no evidence of midline shift. There is no acute hemorrhage. No calvarial fractures are visualized. There is no evidence of pathologic ventricular dilatation. There is no evidence of acute sinusitis IMPRESSION: No acute intracranial findings ----- ABD/PELVIS IV AND ORAL CONT CT DOSE: 298.01 mGy.cm HISTORY: Pain Crohn's disease. Pain. TECHNIQUE: Multiaxial CT images of the abdomen and pelvis were performed following the use of intravenous and oral contrast. A dose lowering technique was utilized adhering to the principles of ALARA. COMPARISON STUDY: 03/07/2017 FINDINGS: Lung bases are clear. Liver spleen and pancreas enhance uniformly. The upper abdominal bowel pattern is nonobstructive. Postoperative changes with a right ileocolic resection are again noted. The sigmoid now swings to the right lower paracolic gutter with the sigmoid rather redundant at this time. There is effacement of the mucosal pattern of the mid sigmoid at this site as well as an area of narrowing of the mid sigmoid best seen image 63. Partial effacement of the sigmoid at the descending colonic junction is also present. This appearance is suggestive of an inflammatory bowel process. No evidence for abscess or collection or obstruction. Note is made of partial effacement of a loop of bowel presumably colon within the right flank. There is again no evidence for abscess collection or obstruction. IMPRESSION: 1. Several areas of mucosal effacement, luminal narrowing, and minimal surrounding infiltrative change suggesting recurrent inflammatory bowel change. 2. This primarily is within the low pelvic region and sigmoid colonic region 3. No evidence for abscess collection or obstruction. 4. This is suggestive of recurrent Crohn's disease in this patient with that clinical history. MEDICATION RECONCILIATION: I attest that I have personally reviewed the patient 's current medication list. INITIAL VITAL SIGNS REVIEW: I reviewed the patient's initial vital signs and interpret them as follows: T: Afebrile; BP: Hypertensive; HR: Within normal limits; RR: Within normal limits; Pulse Ox: Within normal limits on room air. Blood pressure screening: The patient was found to have an elevated blood pressure, which was felt to be situational. SUMMARY: Patient was evaluated at bedside, history and physical exam performed. Patient is alert and oriented, in no acute distress, but does appear uncomfortable and in pain, resting calmly in the stretcher. The abdomen is diffusely tender to palpation, most tender in the right lower quadrant, but no exam findings concerning for acute abdomen. Patient does appear mildly dehydrated as well. Orders were placed at bedside for labs, UA, IV fluids for hydration, IV Zofran for nausea, IM Bentyl for abdominal cramping, CT abdomen/pelvis with IV and oral contrast to evaluate for consultation of Crohn's. Patient discussed with Dr. José, who agrees with my assessment and plan. Nursing staff called stating that patient has not had any relief of abdominal pain with the Bentyl, he is requesting something else. IV Dilaudid ordered. On reassessment, he states that his abdominal pain is improved, but he is still complaining of a headache. His neurologic exam remains normal with no focal deficits. Second bag of IV fluids was ordered, and migraine cocktail of Compazine and Benadryl ordered. Given patient's reports that he does not often get headaches, will perform a CT of the head. Labs and imaging reviewed as above. CT head unremarkable. CT abd/pelvis findings consistent with possible flare of Crohn's. I spoke with Dr. Caban, gastroenterology, who recommended sending stool culture and ruling out C. difficile. She states the patient can call the office tomorrow to get a close follow-up appointment. Patient reassessed multiple times throughout ED stay, he states that his headache is gone and his abdominal cramping is improved. His nausea is also improved and he is tolerating oral fluids. Patient has been unable to provide a stool sample. He was provided with a stool collection kit and a prescription for stool culture and C. difficile testing for outpatient. Patient was updated on all results and plan for discharge, he was encouraged to follow closely with his GI doctor and to call tomorrow for an appointment. Patient was also given strict return precautions should his symptoms worsen, he verbalized understanding. Patient was discharged home in stable condition and ambulatory. Problem List Medical Problems: (1) Abdominal pain Status: Resolved (2) Chronic pain Status: Chronic (3) Crohn disease Status: Chronic (4) Crohns disease Status: Chronic (5) Crohns disease Status: Chronic (6) Exacerbation of Crohn's disease Status: Resolved (7) Exacerbation of Crohn's disease Status: Resolved (8) GERD (gastroesophageal reflux disease) Status: Chronic (9) GERD (gastroesophageal reflux disease) Status: Chronic (10) Hematochezia Status: Resolved (11) Lumbago Status: Chronic (12) Nausea, vomiting, and diarrhea Status: Resolved (13) Right sided abdominal pain Status: Resolved (14) Sacroiliitis Status: Chronic (15) Strain of left pectoralis muscle Status: Resolved (16) Strain of left pectoralis muscle Status: Resolved (17) Thoracic back pain Status: Resolved Surgical Problems: (1) History of partial colectomy Permanent Comment: LAPAROSCOPIC PARTIAL COLECTOMY REMOVAL OF TERMINAL ILEUM performed by Shweta Causey MD at [facility] Status: Resolved (2) S/p ileocectomy Permanent Comment: 02/2014 Status: Chronic (3) Status post small bowel resection Status: Resolved Current/Historical Medications Scheduled Adalimumab (Humira Pen), 40 MG SQ Q2 WEEKS Omeprazole (Prilosec), 20 MG PO BID Ondasetron Odt (Zofran Odt), 4 MG SL Q6H Sertraline (Zoloft), 50 MG PO DAILY Scheduled PRN Dicyclomine Hcl (Dicyclomine Hcl), 20 MG PO DAILY PRN for Abdominal cramping Methocarbamol (Robaxin), 500 MG PO TID PRN for Muscle Spasms Oxycodone Hcl (Oxycodone Hcl), 1 TAB PO TID PRN for Pain Allergies Coded Allergies: Acetaminophen (Verified Allergy, Intermediate, HIVES, 06/17/17) NSAIDs (Verified Allergy, Unknown, contraindicated hx bleeding ulcers, 06/17) Infliximab (Verified Adverse Reaction, Severe, NAUSEA, EMESIS, FLUSHING, HIVES, HYPERTENSION, PALLOR, 06/17/17) PT RECEIVING 3RD DOSE OF REMICADE (1ST AT [facility]) AND DEVELOPED THE FOLLOWING SYMPTOMS 13 MINUTES INTO MEDICATION: NAUSE, EMESIS, FLUSHING, HIVES ON FACE, BACK, ABDOMEN, CHEST, AND BELOW RIGHT EYE; HYPERTENSION, PALLOR. DENIES ANY DIFFICULTY SWALLOWING OR BREATHING/NO SOB. MEDICATION STOPPED IMMEDIATELY WITH NSS UP AT 125 CC/HR. Vital Signs Date Time Temp Pulse Resp B/P (MAP) Pulse Ox O2 Delivery O2 Flow Rate FiO2 06/17/17 18:48 63 16 124/55 98 06/17/17 17:36 52 18 158/104 99 06/17/17 14:44 36.9 73 20 156/101 98 Room Air Laboratory Results 06/17/17 15:10 Red Blood Count 4.77, Mean Corpuscular Volume 88.3, Mean Corpuscular Hemoglobin 29.6, Mean Corpuscular Hemoglobin Concent 33.5, Mean Platelet Volume 13.1, Neutrophils (%) (Auto) 65.2, Lymphocytes (%) (Auto) 25.1, Monocytes (%) (Auto) 7.3, Eosinophils (%) (Auto) 1.6, Basophils (%) (Auto) 0.3, Neutrophils # (Auto) 6.58, Lymphocytes # (Auto) 2.53, Monocytes # (Auto) 0.74, Eosinophils # (Auto) 0.16, Basophils # (Auto) 0.03 06/17/17 15:10 Test 06/17/17 15:10 06/17/17 15:50 White Blood Count 10.09 K/uL (4.8-10.8) Red Blood Count 4.77 M/uL (4.7-6.1) Hemoglobin 14.1 g/dL (14.0-18.0) Hematocrit 42.1 % (42-52) Mean Corpuscular Volume 88.3 fL (80-100) Mean Corpuscular Hemoglobin 29.6 pg (25-34) Mean Corpuscular Hemoglobin Concent 33.5 g/dl (32-36) Platelet Count 219 K/uL (130-400) Mean Platelet Volume 13.1 fL (7.4-10.4) Neutrophils (%) (Auto) 65.2 % Lymphocytes (%) (Auto) 25.1 % Monocytes (%) (Auto) 7.3 % Eosinophils (%) (Auto) 1.6 % Basophils (%) (Auto) 0.3 % Neutrophils # (Auto) 6.58 K/uL (1.4-6.5) Lymphocytes # (Auto) 2.53 K/uL (1.2-3.4) Monocytes # (Auto) 0.74 K/uL (0.11-0.59) Eosinophils # (Auto) 0.16 K/uL (0-0.5) Basophils # (Auto) 0.03 K/uL (0-0.2) RDW Standard Deviation 47.4 fL (36.4-46.3) RDW Coefficient of Variation 14.6 % (11.5-14.5) Immature Granulocyte % (Auto) 0.5 % Immature Granulocyte # (Auto) 0.05 K/uL (0.00-0.02) Anion Gap 5.0 mmol/L (3-11) Est Creatinine Clear Calc Drug Dose 88.2 ml/min Estimated GFR () 93.1 Estimated GFR (Non- 80.3 BUN/Creatinine Ratio 14.4 (10-20) Calcium Level 8.5 mg/dl (8.5-10.1) Total Bilirubin 0.3 mg/dl (0.2-1) Direct Bilirubin < 0.1 mg/dl (0-0.2) Aspartate Amino Transf (AST/SGOT) 19 U/L (15-37) Alanine Aminotransferase (ALT/SGPT) 30 U/L (12-78) Alkaline Phosphatase 74 U/L (45-117) Total Protein 8.1 gm/dl (6.4-8.2) Albumin 4.0 gm/dl (3.4-5.0) Lipase 206 U/L (73-393) Urine Color YELLOW Urine Appearance CLEAR (CLEAR) Urine pH 5.5 (4.5-7.5) Urine Specific [place] 1.017 (1.000-1.030) Urine Protein NEG (NEG) Urine Glucose (UA) NEG (NEG) Urine Ketones NEG (NEG) Urine Occult Blood NEG (NEG) Urine Nitrite NEG (NEG) Urine Bilirubin NEG (NEG) Urine Urobilinogen NEG (NEG) Urine Leukocyte Esterase NEG (NEG) Medications Administered Medications (Trade) Dose Ordered Sig/Petar Route Start Time Stop Time Status Last Admin Dose Admin Sodium Chloride 1,000 ml @ 999 mls/hr Q1H1M STAT IV 06/17/17 14:56 06/17/17 15:56 DC 06/17/17 15:10 999 MLS/HR Ondansetron HCl (Zofran Inj) 4 mg NOW STAT IV 06/17/17 14:56 06/17/17 14:59 DC 06/17/17 15:15 4 MG Dicyclomine HCl (Bentyl Inj) 20 mg NOW ONCE IM 06/17/17 15:00 06/17/17 15:01 DC 06/17/17 15:15 20 MG Hydromorphone HCl (Dilaudid Inj) 0.5 mg NOW STAT IV 06/17/17 15:57 06/17/17 15:58 DC 06/17/17 16:03 0.5 MG Prochlorperazine Edisylate (Compazine Inj) 10 mg NOW STAT IV 06/17/17 17:08 06/17/17 17:10 DC 06/17/17 17:35 10 MG Diphenhydramine HCl (Benadryl Inj) 50 mg NOW STAT IV 06/17/17 17:08 06/17/17 17:10 DC 06/17/17 17:35 50 MG Sodium Chloride 1,000 ml @ 999 mls/hr Q1H1M STAT IV 06/17/17 17:08 06/17/17 18:08 DC 06/17/17 17:35 999 MLS/HR Departure Information Impression Primary Impression: Crohns disease Additional Impressions: Abdominal cramping Diarrhea Dispostion Home / Self-Care Condition GOOD Prescriptions Ondasetron Odt (ZOFRAN ODT) 4 Mg Tab 4 MG SL Q6H for Nausea, #10 TAB Prov: uYliana RocheTREVOR Salas 06/17/17 Referrals Kevin Smith M.D. (PCP) Avinash Metzger MD Patient Instructions ED Diet [place], ED Inflam Bowel Disease Crohn, [facility] Additional Instructions You have been treated in the Emergency Department for your abdominal cramping, diarrhea, and headache. Laboratory results and imaging studies have ruled out any emergent causes for your symptoms which would warrant admission or surgery. Your CT scan of your abdomen today does show signs of inflammation which may indicate a flare of your Crohn's disease, or could represent an infection. You have been provided with a stool collection kit and a prescription for stool studies to be taken to the lab. Please do this as soon as possible. You have been prescribed Zofran to be used as needed for nausea/vomiting. Take as prescribed. You may continue your prescribed pain medication as indicated, as needed for pain. Drink plenty of fluids to stay well hydrated. Stick with a bland diet until your diarrhea is improved. Please follow closely with your gastroenterology doctor. Call the office tomorrow morning to set up a follow-up appointment this week. Return to the emergency department for severe worsening abdominal pain, worsening nausea/vomiting, vomiting blood, large amounts of blood in your stool or urine, fevers > 101.5, severe dizziness or passing out, or any other concerns. Work Instructions Return To Work: 2 days Problem Qualifiers Primary Impression: Crohns disease Gastrointestinal tract location: small and large intestine Additional Impressions: Diarrhea Diarrhea type: unspecified type Qualified Codes: R19.7 - Diarrhea, unspecified
[2017-06-17 15:41] LABS: ALT/SGPT 30 U/L (12-78); AST/SGOT 19 U/L (15-37); BLOOD UREA NITROGEN 17 mg/dl (7-18); CALCIUM 8.5 mg/dl (8.5-10.1); CARBON DIOXIDE 26 mmol/L (21-32); CREATININE 1.17 mg/dl (0.60-1.40); GLUCOSE 85 mg/dl (70-99); LIPASE 206 U/L (73-393); POTASSIUM 3.8 mmol/L (3.5-5.1); SODIUM 138 mmol/L (136-145)
[2017-06-17 15:44] LABS: ALKALINE PHOSPHATASE 74 U/L (45-117); TOTAL PROTEIN 8.1 gm/dl (6.4-8.2)
[2017-06-17] MEDS ORDERED: HYDROmorphone INJ 0.5 MG/0.5 ML SYR IV STA (15:57)
[2017-06-17] MEDS ORDERED: DiphenhydrAMINE HCL 50 MG/ML VIAL IV STA (17:08)
[2017-06-17] MEDS ORDERED: DICY20TA10 PO (17:08)
[2017-06-17] MEDS ORDERED: PROCHLORPERAZINE 5 MG/ML 2 ML VIAL IV STA (17:08)
--- NOTE | 2017-06-17 17:27 | DIAGNOSTIC IMAGING REPORT ---
CT HEAD WITHOUT CONTRAST (CT) CLINICAL HISTORY: Sudden onset of severe headache COMPARISON STUDY: No previous studies for comparison. TECHNIQUE: Axial CT of the brain is performed from the vertex to the skull base. IV contrast was not administered for this examination. A dose lowering technique was utilized adhering to the principles of ALARA. CT DOSE: 614.27 mGy.cm FINDINGS: No intra or extra-axial mass lesions are visualized. There is no CT evidence of acute cortical infarction. There is no evidence of midline shift. There is no acute hemorrhage. No calvarial fractures are visualized. There is no evidence of pathologic ventricular dilatation. There is no evidence of acute sinusitis IMPRESSION: No acute intracranial findings Electronically signed by: Adam Yu M.D. 06/17/2017 5:26 PM Dictated Date/Time: 06/17/2017 5:25 PM
--- NOTE | 2017-06-17 17:35 | DIAGNOSTIC IMAGING REPORT ---
ABD/PELVIS IV AND ORAL CONT CT DOSE: 298.01 mGy.cm HISTORY: Pain Crohn's disease. Pain. TECHNIQUE: Multiaxial CT images of the abdomen and pelvis were performed following the use of intravenous and oral contrast. A dose lowering technique was utilized adhering to the principles of ALARA. COMPARISON STUDY: 03/07/2017 FINDINGS: Lung bases are clear. Liver spleen and pancreas enhance uniformly. The upper abdominal bowel pattern is nonobstructive. Postoperative changes with a right ileocolic resection are again noted. The sigmoid now swings to the right lower paracolic gutter with the sigmoid rather redundant at this time. There is effacement of the mucosal pattern of the mid sigmoid at this site as well as an area of narrowing of the mid sigmoid best seen image 63. Partial effacement of the sigmoid at the descending colonic junction is also present. This appearance is suggestive of an inflammatory bowel process. No evidence for abscess or collection or obstruction. Note is made of partial effacement of a loop of bowel presumably colon within the right flank. There is again no evidence for abscess collection or obstruction. IMPRESSION: 1. Several areas of mucosal effacement, luminal narrowing, and minimal surrounding infiltrative change suggesting recurrent inflammatory bowel change. 2. This primarily is within the low pelvic region and sigmoid colonic region 3. No evidence for abscess collection or obstruction. 4. This is suggestive of recurrent Crohn's disease in this patient with that clinical history. The above report was generated using voice recognition software. It may contain grammatical, syntax or spelling errors. Electronically signed by: Marcelo Lopez M.D. 06/17/2017 5:33 PM Dictated Date/Time: 06/17/2017 5:25 PM
[2017-06-17] MEDS ORDERED: ONDA4TAB10 SL (18:40)
[2017-06-17 18:48] VITALS: BP 124/55; PULSE 63; O2SAT 98
== END 2017-06-17 18:49 | disposition home or self-care (01) ==
LOC: C.EDB 14:37
DX: R10.31 Right lower quadrant pain (principal); R19.7 Diarrhea, unspecified; K50.90 Crohn's disease, unspecified, without complications; R51 Headache; F17.200 Nicotine dependence, unspecified, uncomplicated; Z90.49 Acquired absence of other specified parts of digestive tract; Z88.6 Allergy status to analgesic agent; Z88.8 Allergy status to other drugs, medicaments and biological substances